=== PATIENT | female | born 1935 | race Caucasian/White ===

== ENCOUNTER 2022-04-06 14:42 | Outpatient (CLI) | payer MEDICARE, SELFPAY ==
--- NOTE | 2022-04-06 14:00 | CRLHL7_ITS ---
For Patients: As a result of the Century Cures Act, medical imaging exams and procedure reports are released immediately into your electronic medical record. You may view this report before your referring provider. If you have questions, please contact your health care provider. INDICATION: Bifrontal and temporal headaches on anticoagulation is common trauma TECHNIQUE: CT head without contrast. COMPARISON: 08/24/2020 FINDINGS: CSF spaces: Within normal limits for age. Brain parenchyma: The mueller-white differentiation is normal. No sign of mass, hemorrhage, or midline shift. Skull base and calvarium: The visualized paranasal sinuses and mastoid air cells demonstrate no acute or significant findings. The visualized orbits are grossly unremarkable. No skull fractures. IMPRESSION: Unremarkable noncontrast head CT. Dictated by Morales Fitch MD @ 04/06/2022 3:19:47 PM Please note that all CT scans at this facility use dose modulation, iterative reconstruction, and/or weight-based dosing when appropriate to reduce radiation dose to as low as reasonably achievable. Dictated by: Morales Fitch MD @ 04/06/2022 15:19:52 (Electronically Signed)
== END 2022-04-06 14:43 | disposition home or self-care (01) ==
LOC: CT 14:46
PROVIDERS: PCP Emergency Medicine; Visit Provider Emergency Medicine
DX: R51.9 Headache, unspecified (principal)
CPT/HCPCS: 70450; 84443

== ENCOUNTER 2022-06-21 14:30 | Outpatient (CLI) | payer MEDICARE, SELFPAY ==
--- OUTSIDE RECORDS SUMMARY | 2022-06-21 14:39 | XMS_ITS ---
:1935 Author Care Team Providers Name Role Phone SANTIAGO ZARATE Primary Care Provider [phone] Allergies Code Code System Name Reaction Severity Status Onset NKDA ? Medications Name Status Start Date Stop Date ? ? hydrochlorothiazide Active ? Not availabl e lisinopril Active ? Not available metoprolol succinate Active ? Not availab le simvastatin Active ? Not available warfarin Active ? Not available Problems None recorded. Procedures Date Name Performed by ? ? Cholecystectomy Information not avai lable ? Cataract Surgery Information not avai lable ? Cardiac Surgery Information not avai lable Results Lab Results Date Name Specimen Result Interpretation Description Value Range Status Address ? ? Bladder Scan (PROC) ? Volume (in mL) 0 mLs ? ? [facility]: [address], [place] ? Urinalysis, Dipstick ? pH-Status 6.0 ? ? [facility]: [address], [place] ? ? ? Blood-Status Trace ? ? [facility] [address], [place] Past Encounters None recorded. Social History Tobacco Smoking Status Never Smoker Vaccine List Vaccine Type pneumococcal conjugate PCV 13 08/03/2016 Plan of Care Reminders Provider Appointments None recorded. ? ? Lab None recorded. ? ? Referral None recorded. ? ? Procedures None recorded. ? ? Surgeries None recorded. ? ? Imaging None recorded. ? ? Vitals Height Weight BMI 5 ft 6.5 in 180 lbs 28.6 kg/m2
--- OUTSIDE RECORDS SUMMARY | 2022-06-21 14:39 | XMS_ITS | Clinical Summary ---
:1935 Author Organization [employer] & [facility] [place] [address] Care Team Providers Name Role Phone Lizzy Diaz MD Primary Care Provider [phone] Allergies No known active allergies Medications Medication Sig Dispensed Refills Start Date End Date Status MULTIVITAMIN ORAL 1 tab daily 0 Active VIACTIV 500 MG-100 UNIT-40 1 tab tid 0 08/05/2004 Active MCG ORAL CHEW ATENOLOL 50 MG TAB 1 tablet 3 month 3 10/15/2007 Active orally daily MECLIZINE 25 MG TAB take 1 tablet 30 1 03/13/2008 Active orally twice a day as needed HYDROCHLOROTHIAZIDE 25 MG TAKE 1 TABLET 30 1 12/24/2008 Active TAB BY MOUTH DAILY Active Problems Problem Noted Date FAMILY HX OF MALIG NEOPLSM OF BREAST-2 sisters 008 FAMILY HX OF ISCHEMIC HEART DISEASE-mother [place] in 50s, father in 70s 10/15/2007 MILD MITRAL REGURGITATION, mild LAE, EF 55% on TTE 08/15/2006 Palpitations 08/01/2006 Overview: labs normal TTE- normal EF, nl LV size, mild MR and TR, LAE [facility] Overview: PE:10/01 pap: 07/29, all normal in past- none fur ther mammo: 06/30 hx of breast cancer- Dr. Lane dexa: 07/30-osteopenia calcium: 2-3 dairy, mv, viactiv tid exercise: walks 3 miles daily colon: 06/2004-polyp (Dr. 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 Lane q3 mo [facility]. HYPERTENSION-TTE 07/30- EF 55-60%, nl LV size, trace/m ild MR, mild LAE Overview: 07/30- LVH on EKG- schedule TTE- no LVH Immunizations Name Administration Dates Next Due Influenza, IIV3 (Age >=3 years) 07/25/2007, 07/25/2006, 07/25 Pneumococcal Poly,23-Valent (Pneumovax) 03/11/2004 Td (Age >=7 Years) 03/11/2004 Family History Medical History Relation Name Comments Heart Disease Father in 90s of C AD/CHF Heart Disease Mother onset late 50s Cancer-breast Sister 4 age 72 Cancer-breast Sister 5 age 70 Cancer-colon No Family History Cancer-ovarian No Family History Cancer-prostate No Family History Relation Name Status Comments Brother 1 Alive Brother 2 Alive Brother 3 Alive Brother 4 Alive Father (Age 90) CAD, CHF Mother (Age 91) CAD, CHF Paternal Aunt Alive Sister 1 Alive Sister 2 Alive hx of breast ca Sister 3 Alive hx of breast ca Sister 4 Sister 5 Social History Tobacco Use Types Packs/Day Years Used Date Never Smoker Alcohol Use Standard Drinks/Week Comments Yes 0 (1 standard drink = 0.6 oz pure alcoho l) seldom Sex Assigned at Date Recorded Not on file Obstetrics History Last Filed Vital Signs Vital Sign Reading Time Taken Comments Blood Pressure 120/60 03/13/2008 1:08 PM CDT Pulse 64 10/15/2007 1:34 PM JAVA APPLICATION DEVELOPER Temperature 36.6 ??C (97.9 ??F) 03/08/2007 1:45 PM CDT Respiratory Rate - - Oxygen Saturation - - Inhaled Oxygen Concentration - - Weight 80.6 kg (177 lb 9.6 oz) 03/13/2008 1:08 PM CDT Height 170.2 cm (5' 7) 10/15/2007 1:34 PM JAVA APPLICATION DEVELOPER Body Mass Index 27.82 10/15/2007 1:34 PM JAVA APPLICATION DEVELOPER Plan of Treatment Health Maintenance Due Date Last Done Comments COVID-19 vaccine series (#1) 03/30/1936 Tdap 1946 Depression screening for age 12+ 1947 BMI (ht and wt on same day) for age 0109/30/1953 18+ Zoster (shingles) series for age 50+ 1985 (1 of 2) Pneumococcal series for age 65+ (2 - 03/11/2005 03/11/2004 PCV) Tetanus booster 03/11/2014 03/11/2004 Influenza for age 65+ 05/25/2022 07/25/2007, 07/25/2006, 08/05/2004 DEXA/DXA scan for age 65+ Completed 06/18/2008 Results Not on filefrom Last 3 Months Insurance Payer Benefit Plan / Subscriber ID Effective Dates Phone Addre ss Type Group MEDICARE PART B MEDICARE PART B [id number] 2000-Presen ATTN: CLAIMS - HB USE ONLY HB ONLY t [address] [facility] [place] [address] BLUE CROSS BLUE CROSS [id number] 2019-Presen [address] MED[place], [place] [id number] Advance Directives Latest Code Status on File Code Status Date Activated Date Inactivated Comments 08/07/2004 10:50 PM 08/07/2004 11:50 PM Care Teams Horticultural Manager Relationship Specialty Start Date End Date Lizzy Diaz MD PCP - General 07/10/10
--- NOTE | 2022-06-21 14:40 | CRLHL7_ITS ---
For Patients: As a result of the Century Cures Act, medical imaging exams and procedure reports are released immediately into your electronic medical record. You may view this report before your referring provider. If you have questions, please contact your health care provider. RIGHT SCREENING MAMMOGRAM WITH COMPUTER-AIDED DETECTION TECHNIQUE: CC and MLO views were obtained. These mammographic images have been obtained using full-field digital technique. These mammographic images were interpreted with the benefit of computer-aided detection. COMPARISON FILM: 05/24/21, 03/26/20, 11/25/18. FINDINGS: There are scattered areas of fibroglandular density IMPRESSION: There is no radiographic evidence for malignancy. ASSESSMENT: BI-RADS Category 2: Benign RECOMMENDATION: Routine screening mammogram in 1 year. A lay language report of this examination will be provided to the patient. Morales Spence M.D. Diagnostic Radiologist [email or web address] CLEMENT/Dictated by: Morales Spence MD @ 06/22/2022 12:41:00 PM (Electronically Signed)
== END 2022-06-21 14:31 | disposition home or self-care (01) ==
LOC: MAMMO 14:31
PROVIDERS: PCP Emergency Medicine; Visit Provider Emergency Medicine
DX: Z12.31 Encounter for screening mammogram for malignant neoplasm of breast (principal)
CPT/HCPCS: 77067

== ENCOUNTER 2022-07-05 10:34 | Outpatient (CLI) | payer MEDICARE, SELFPAY ==
--- OUTSIDE RECORDS SUMMARY | 2022-07-05 10:37 | XMS_ITS | Clinical Summary ---
:1935 Author Organization [employer] & [facility] [place] [address] Care Team Providers Name Role Phone Lizzy Diaz MD Primary Care Provider [phone] Allergies No known active allergies Medications Medication [...] 008 FAMILY HX OF ISCHEMIC HEART DISEASE-mother [place] in 50s, father in 70s 10/15/2007 MILD MITRAL REGURGITATION, mild LAE, EF 55% on TTE 08/15/2006 Palpitations 08/01/2006 Overview: labs normal TTE- normal EF, nl LV size, mild MR and TR, LAE [facility]2005 Overview: PE:10/01 pap: 07/29, all normal [...] year. Follows with Dr. Lane q3 mo [facility]. HYPERTENSION-TTE 07/30- EF 55-60%, nl LV [...] PM CDT Pulse 64 10/15/2007 1:34 PM PAINTER SET Temperature 36.6 ??C (97.9 ??F) 03/08/2007 1:45 PM CDT Respiratory Rate - - Oxygen Saturation - - Inhaled Oxygen Concentration - - Weight 80.6 kg (177 lb 9.6 oz) 03/13/2008 1:08 PM CDT Height 170.2 cm (5' 7) 10/15/2007 1:34 PM PAINTER SET Body Mass Index 27.82 10/15/2007 1:34 PM PAINTER SET Plan of Treatment Health Maintenance Due Date [...] Group MEDICARE PART B MEDICARE PART B [id number] 2000-Presen ATTN: CLAIMS - HB USE ONLY HB ONLY t [address] [place] [address] BLUE CROSS BLUE CROSS [id number] 2019-Presen [address] MEDICARE [place] [id number] Advance Directives Latest Code Status on File Code Status Date Activated Date Inactivated Comments 08/07/2004 10:50 PM 08/07/2004 11:50 PM Care Teams Comber Tender Relationship Specialty Start Date End Date Lizzy Diaz MD PCP - General 07/10/10
--- OUTSIDE RECORDS SUMMARY | 2022-07-05 10:37 | XMS_ITS ---
:1935 Author Care Team Providers Name Role Phone SANTIAGO ZARATE Primary Care Provider [phone] Allergies Code Code System Name Reaction Severity [...] Volume (in mL) 0 mLs ? ? [facility]: [address], [place] ? Urinalysis, Dipstick ? pH-Status 6.0 ? ? [facility]: [address], [place] ? ? ? Blood-Status Trace ? ? [facility] [address], [place] Past Encounters None recorded. Social History Tobacco [...]
[2022-07-05 12:48] LABS: NT Pro B Type NatriureticPept* 1420 PG/mL (0-450)
== END 2022-07-05 10:35 | disposition home or self-care (01) ==
PROVIDERS: PCP Emergency Medicine; Visit Provider Emergency Medicine
DX: R06.02 Shortness of breath (principal); I10 Essential (primary) hypertension; Z79.01 Long term (current) use of anticoagulants
CPT/HCPCS: 83880; 84484

== ENCOUNTER 2022-07-28 11:20 | Emergency (ER) | payer MEDICARE, SELFPAY ==
[2022-07-28 11:24] VITALS: BP 170/84; PULSE 78; RESP 20; TEMP 36.2; O2SAT 96; BMI 29.1
--- NOTE | 2022-07-28 11:35 | ED_ITS ---
HPI - General Adult General Time Seen by Provider: 11:36 Date Seen: 07/28/22 Chief complaint: Extremity Pain/Injury, Lower Stated complaint: R knee pain Time Seen by Provider: 07/28/22 11:26 Source: patient and family Mode of arrival: ambulatory Limitations: no limitations History of Present Illness HPI narrative: 86-year-old female who comes in today with knee pain. She has had knee pain since a fall in February. She reports that she has had x-ray and MRI of this with no pathology found. Today has had increased pain and unable to bend the knee. No new injury. She has been taking Tylenol ibuprofen as well as using a brace. She is currently anticoagulated for a heart valve, she also has a pacemaker. INR done yesterday by her report was in therapeutic range. She denies any fevers or chills. Pain in the knee is worse with movement and walking, she says it is swollen today as well. On further you to review with patient and daughter, it sounds like she has only had x-ray of this knee and has not had advanced imaging to date. She has not seen Orthopedics for this. Related Data Home Medications Medication Instructions Recorded Confirmed amoxicillin 500 mg tablet 2,000 mg PO ONCE 04/06/22 07/28/22 metoprolol succinate 50 mg 50 mg PO BID 04/06/22 07/28/22 tablet,extended release 24 hr multivitamin (Daily Multi-Vitamin 1 tab PO QDAY 04/06/22 07/28/22 tablet) metoprolol tartrate 50 mg tablet 50 mg PO BID 07/28/22 07/28/22 simvastatin 10 mg tablet 10 mg PO DAILY 07/28/22 07/28/22 Previous Rx's Medication Instructions Recorded lisinopril 20 1 tab PO QDAY #90 tabs 07/05/22 mg-hydrochlorothiazide 12.5 mg tablet warfarin 3 mg tablet See Rx Instructions .Route 07/26/22 .COMPLEX #90 tabs Allergies Allergy/AdvReac Type Severity Reaction Status Date / Time No Known Allergies Allergy Verified 07/05/22 10:04 [facility] Medical History (Updated 07/28/22 @ 13:25 by Julio Crum MD) Anxiety Calf pain COVID-19 Headache Leg edema 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 SOB (shortness of breath) Surgical History (Updated 07/05/22 @ 12:55 by Briana Luevano MD) History of aortic valve replacement History of aortic valve replacement History of colonoscopy with polypectomy History of mastectomy Status post cardiac pacemaker procedure (08/08/10) Status post cataract extraction and insertion of intraocular lens (02/28/13) Family History (Updated 04/03/22 @ 13:34 by Tino Dodge) Sister Breast cancer Mother Coronary artery disease High blood pressure Father Coronary artery disease Brother Diabetes Social History (Updated 04/03/22 @ 13:34 by Tino Dodge) Narrative: does not use illicit drugs nonsmoker occasional alcohol consumption Smoking Status: Never smoker Do you use any of these nicotine containing products: None Second hand tobacco smoke exposure: No How often do you have a drink containing alcohol: never AUDIT-C Alcohol total score: 0 Non-prescribed substance use: denies use Exam Narrative: Exam Narrative: General: Well-developed and well-nourished, no acute distress Head: Atraumatic and normocephalic Eyes: Pupils are equal reactive, extraocular motions intact, conjunctiva clear ENT: External nose and ears are normal, posterior pharynx without erythema or exudate Neck: No midline cervical tenderness, full spontaneous range of motion the neck, trachea midline, no adenopathy Heart: Regular rate and rhythm , valve murmur Lungs: Clear to auscultation bilaterally without wheezes or crackles Abdomen: Soft, nontender, nondistended with active bowel sounds Musculoskeletal: Right knee effusion, pain with passive move Neurologic: Awake, alert, and oriented x3, no gross focal neurologic deficits, cranial nerves intact as tested Psych: Mood and affect are appropriate Skin: No rashes Const: Vital Signs, click to edit/add: Vital Signs - 24 hr 07/28/22 11:24 Temperature 97.1 F L Pulse Rate [Right Pulse Oximeter] 78 Respiratory Rate 20 Blood Pressure [Ri ght Upper Arm] 170/84 H Pulse Oximetry 96 Oxygen Delivery Me thod Room Air Documenting provider has reviewed patient's vital signs: yes Course Course Hospital Course: Patient seen examined, prior records are reviewed. Patient complans of right knee pain which is been ongoing since a fall several months ago. She denies any new trauma but has had progressively worsening pain. Came in by ambulance [facility]. On exam, moderate to large joint effusion, pain with movement, no redness or warmth. Patient initially had stated that she had had a CT and MRI of this, however on review of chart she only had x-rays at the time of her initial injury. She says she has not been seen elsewhere for this, and it sounds like on further questioning she has not had any other further imaging. Patient has a pacemaker, CT of the right leg is ordered to evaluate for bony abnormality. Reevaluation(s) Reevaluation #1: CT scan demonstrated a large joint effusion but no bony abnormalities. Discussed arthrocentesis with the patient, risks and benefits discussed and patient is agreeable to proceed. Joint was entered from a superior lateral approach after anesthetizing the skin with lidocaine 1% with epinephrine. 40 mL of serosanguineous fluid was obtained. Sent for cultures and crystal analysis. Kenalog 40 mg injected. Patient tolerated the procedure well. Needle was withdrawn with no bleeding and a Band-Aid was placed. Pain improved after arthrocentesis. Time: 13:24 Vital Signs Vital signs: Initial Vital Signs Temperature 97.1 F L 07/28/22 11:24 Temperature Source Temporal Artery Scan 07/28/22 11:24 Pulse Rate 78 07/28/22 11:24 Respiratory Rate 20 07/28/22 11:24 Blood Pressure 170/84 H 07/28/22 11:24 Blood Pressure Mean 112 07/28/22 11:24 Blood Pressure Position Sitting 07/28/22 11:24 Pulse Oximetry 96 07/28/22 11:24 Oxygen Delivery Method 07/28/22 11:24 Vital Signs Temperature 97.1 F L 07/28/22 11:24 Pulse Rate 78 07/28/22 11:24 Respiratory Rate 20 07/28/22 11:24 Blood Pressure 170/84 H 07/28/22 11:24 Pulse Oximetry 96 07/28/22 11:24 Oxygen Delivery Method 07/28/22 11:24 Temperature 97.1 F L 07/28/22 11:24 Pulse Rate 78 07/28/22 11:24 Respiratory Rate 20 07/28/22 11:24 Blood Pressure 170/84 H 07/28/22 11:24 Pulse Oximetry 96 07/28/22 11:24 Oxygen Delivery Method 07/28/22 11:24 Discharge Plan Discharge Clinical Impression: Joint effusion of knee Patient Disposition: Home, Self-Care Condition: Stable Instructions: Swollen Knee Joint (ED), Joint Aspiration (DC) Additional Instructions: Ice the knee 15-20 minutes at a time every 2-3 hours while awake for the next 2- 3 days. Activity as tolerated. Continue using a wrap or brace on the knee for comfort and to prevent reaccumulation of fluid. Follow-up with your regular doctor next week, consider following up with the [facility] Activity Level: No Restrictions Discharge Diet: Regular Prescriptions: No Action lisinopril-hydrochlorothiazide 20-12.5 mg tablet 1 tab PO QDAY Qty: 90 1RF Rx Instructions: stop lisinopril 20 amoxicillin 500 mg tablet 2,000 mg PO ONCE metoprolol succinate 50 mg tablet extended release 24 hr 50 mg PO BID multivitamin [Daily Multi-Vitamin] Tablet 1 tab PO QDAY simvastatin 10 mg tablet 10 mg PO DAILY Label Comments: TAKE 1 TABLET BY MOUTH AT BEDTIME metoprolol tartrate 50 mg tablet 50 mg PO BID Label Comments: TAKE 1 TABLET BY MOUTH TWICE A DAY warfarin 3 mg tablet See Rx Instructions .ROUTE .COMPLEX Qty: 90 0RF Protocol: Dose Management Condition: Sunday Dose/Route: 3 % Instruction: 1 x 3 % tablet Condition: Sunday Dose/Route: 3 % Instruction: 1 x 3 % tablet Condition: Sunday Dose/Route: 3 % Instruction: 1 x 3 % tablet Condition: Sunday Dose/Route: 3 % Instruction: 1 x 3 % tablet Condition: Dose/Route: 3 % Instruction: 1 x 3 % tablet Condition: Sunday Dose/Route: 3 % Instruction: 1 x 3 % tablet Condition: Sunday Dose/Route: 3 % Instruction: 1 x 3 % tablet Protocol Text: Adjustment Start Date: Sunday07/26/22 INR Value: 2.7 INR Date: 07/25/22 Recheck Date: 08/23/22 Dose Instruction: TAKE 1 TABLET BY MOUTH EVERY DAY Rx Instructions: TAKE 1 TABLET BY MOUTH EVERY DAY Follow Up/Referrals: Briana Luevano MD [Primary Care Provider] - Stand Alone Forms: [facility] Info Instructions Procedures Joint Aspiration/Injection Joint Asp./Inject. 1: Written consent by: patient Time Out Performed: No Side of body: right Joint Aspirated: knee Site: origin (Superior lateral approach) Preparation: chlorhexidine and betadine Local Anesthetic: lidocaine 1% and with epi Amount of anesthesia used (mL): 44 Needle Size Used: Other (16G) Fluid Obtained: bloody (Serous blood tinged) Total fluid obtained (mL): 40 Medication Injected, if any: other (Kenalog 40 mg with lidocaine 1% 5 mL) Complications: none Patient Tolerated Procedure: well
--- NOTE | 2022-07-28 11:43 | CRLHL7_ITS ---
For Patients: As a result of the Cures Act, medical imaging exams and procedure reports are released immediately into your electronic medical record. You may view this report before your referring provider. If you have questions, please contact your health care provider. INDICATION: Right knee pain. Trauma. Pacemaker. COMPARISON: None. TECHNIQUE: CT right knee without contrast. FINDINGS: Severe tricompartmental joint space narrowing and osteophyte formation most pronounced in the lateral compartment. Chondrocalcinosis. Large joint effusion. Muscle volume is within normal limits for age. No lytic or blastic lesion. IMPRESSION: 1. Large joint effusion. 2. No acute fracture. 3. 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 Chondrocalcinosis. Please note that all CT scans at this facility use dose modulation, iterative reconstruction, and/or weight-based dosing when appropriate to reduce radiation dose to as low as reasonably achievable. Dictated by Morales Kwon MD @ 07/28/2022 12:36:01 PM (Electronically Signed)
--- OUTSIDE RECORDS SUMMARY | 2022-07-28 12:03 | XMS_ITS | Clinical Summary ---
:1935 Author Organization [employer] & [facility] [place] [address] Care Team Providers Name Role Phone Lizzy Diaz MD Primary Care Provider [phone] Allergies No known active allergies Medications Medication [...] 008 FAMILY HX OF ISCHEMIC HEART DISEASE-mother [place] in 50s, father in 70s 10/15/2007 MILD MITRAL REGURGITATION, mild LAE, EF 55% on TTE 08/15/2006 Palpitations 08/01/2006 Overview: labs normal TTE- normal EF, nl LV size, mild MR and TR, LAE [facility] Overview: PE:10/01 pap: 07/29, all [...] year. Follows with Dr. Lane q3 mo [facility]. HYPERTENSION-TTE 07/30- EF 55-60%, nl LV size, [...] PM CDT Pulse 64 10/15/2007 1:34 PM DISABILITY ADVOCATE Temperature 36.6 ??C (97.9 ??F) 03/08/2007 1:45 PM CDT Respiratory Rate - - Oxygen Saturation - - Inhaled Oxygen Concentration - - Weight 80.6 kg (177 lb 9.6 oz) 03/13/2008 1:08 PM CDT Height 170.2 cm (5' 7) 10/15/2007 1:34 PM DISABILITY ADVOCATE Body Mass Index 27.82 10/15/2007 1:34 PM DISABILITY ADVOCATE Plan of Treatment Health Maintenance Due Date [...] Group MEDICARE PART B MEDICARE PART B [id number] 2000-Presen ATTN: CLAIMS - HB USE ONLY HB ONLY t [address] [facility] [address] BLUE CROSS BLUE CROSS [id number] 2019-Presen [address] MEDIC[place], [place] [id number] Advance Directives Latest Code Status on File Code Status Date Activated Date Inactivated Comments 08/07/2004 10:50 PM 08/07/2004 11:50 PM Care Teams Property Handler Relationship Specialty Start Date End Date Lizzy Diaz MD PCP - General 07/10/10
--- OUTSIDE RECORDS SUMMARY | 2022-07-28 12:03 | XMS_ITS ---
:1935 Author Care Team Providers Name Role Phone SANTIAGO ZARATE Primary Care Provider [phone] Allergies Code Code System Name Reaction Severity [...] Volume (in mL) 0 mLs ? ? [facility]: [address], [place] ? Urinalysis, Dipstick ? pH-Status 6.0 ? ? [facility]: [address], [place] ? ? ? Blood-Status Trace ? ? [facility]: [address], [place] Past Encounters None recorded. Social History Tobacco [...]
[2022-07-28 15:19] LABS: BF Total Volume* 40; Mononuclear WBC Body Fluid* 6 %; Polynuclear WBC Body Fluid* 95 %; RBC, Body Fluid* 33000
[2022-07-28 15:20] LABS: BF Clarity* Slightly Cloudy; BF Color Blood Tinged
== END 2022-07-28 15:11 | disposition home or self-care (01) ==
PROVIDERS: Emergency Provider Family Medicine; PCP Emergency Medicine
DX: M25.461 Effusion, right knee (principal)
CPT/HCPCS: 20605; 73700; 87205; 89051; 89060; 99284

== ENCOUNTER 2023-03-08 11:38 | Outpatient (CLI) | payer MEDICARE, SELFPAY | END 2023-03-08 11:39 | disposition home or self-care (01) | LOC: NFLDREF 03-11 09:35 | PROVIDERS: PCP Emergency Medicine; Referring Provider Emergency Medicine; Visit Provider Emergency Medicine | DX: E78.5 Hyperlipidemia, unspecified (principal); I10 Essential (primary) hypertension; Z79.01 Long term (current) use of anticoagulants | CPT/HCPCS: 80053; 80061 ==

== ENCOUNTER 2023-07-11 13:07 | Outpatient (CLI) | payer MEDICARE, SELFPAY ==
--- NOTE | 2023-07-11 13:30 | CRLHL7_ITS ---
For Patients: As a result of the Century Cures Act, medical imaging exams and procedure reports are released immediately into your electronic medical record. You may view this report before your referring provider. If you have questions, please contact your health care provider. DXA BONE MINERAL DENSITY STUDY Current height (in): 66.5. Weight (lb): 175.0. Menopause age: 55. Ethnicity: White. Reason for exam: Screening. 1. Have you had a previous hip or vertebral fracture? No. 2. Have you had any fractures during your adult life which did not result from significant trauma (e.g., auto accident)? No. 3. Did either of your parents have a hip fracture? No. 4. Do you smoke? No. 5. Have you ever taken Glucocorticoids? No. 6. Do you have rheumatoid arthritis? Yes. 7. Do you have secondary osteoporosis? No. 8. Do you drink 3 or more alcoholic drinks per day? No. 9. Are you being treated for osteoporosis? No. 10. Have you ever taken any of the following medications: Actonel, Evista, Fosamax, Miacalcin, Reclast, Boniva, Forteo, HRT (i.e. estrogen/hormone therapy), Protelos, Prolia, Vitamin D, Calcium, other ??? please specify. ANSWER: No. 11. Do you have any of the following medical conditions: Anorexia or bulimia, asthma or emphysema, end stage renal disease, hyperparathyroidism, any seizure disorders, cancer, inflammatory bowel diseases, hysterectomy, other ??? please specify. ANSWER: Yes, cancer. 12. What was your maximum height (inches)? 66.5. 13. Do you perform weight bearing exercise regularly? No. 14. Do you regularly consume dairy products? Yes. 15. Do you drink caffeinated beverages? No. 16. At what age did your period start? 12. 17. Are you premenopausal? No. 18. How many full term pregnancies have you had? 3. 19. Have you ever missed your period for more than 6 months in a row (not including or menopause)? No. TECHNIQUE: Bone mineral density study was performed using the [employer]. FINDINGS: The results of the study expressed as bone mineral density (BMD) are as follows: Lumbar spine L1 to L4: BMD: 0.874 g/cm2. T-score: -1.6. Z-score: 1.3. Neck Left: BMD: 0.582 g/cm2. T-score: -2.4. Z-score: 0.1. Right: BMD: 0.550 g/cm2. T-score: -2.7. Z-score: -0.2. Total Left: BMD: 0.687 g/cm2. T-score: -2.1. Z-score: 0.2. Right: BMD: 0.619 g/cm2. T-score: -2.6. Z-score: -0.3. IMPRESSION: Osteoporosis. Morales Spence M.D. Diagnostic Radiologist [email or web address] Transcribed: 12:05 pm DW/Dictated by: Morales Spence MD @ 07/16/2023 8:48:00 AM (Electronically Signed)
--- NOTE | 2023-07-11 14:00 | CRLHL7_ITS ---
For Patients: As a result of the Century Cures Act, medical imaging exams and procedure reports are released immediately into your electronic medical record. You may view this report before your referring provider. If you have questions, please contact your health care provider. RIGHT BREAST SCREENING MAMMOGRAM WITH COMPUTER-AIDED DETECTION TECHNIQUE: CC and MLO views were obtained. These mammographic images have been obtained using full-field digital technique. These mammographic images were interpreted with the benefit of computer-aided detection. COMPARISON FILM: 06/21/22, 05/24/21, 03/26/20. FINDINGS: There are scattered areas of fibroglandular density. IMPRESSION: There is no radiographic evidence for malignancy. ASSESSMENT: BI-RADS Category 2: Benign RECOMMENDATION: Routine screening mammogram in 1 year. A lay language report of this examination will be provided to the patient. FRANCINE LAURENT M.D. Diagnostic/Nuclear Medicine Radiologist [email or web address] Transcribed: 1:[address]/Dictated by: Francine Laurent MD @ 07/13/2023 10:23:00 AM (Electronically Signed)
== END 2023-07-11 13:08 | disposition home or self-care (01) ==
PROVIDERS: PCP Emergency Medicine; Visit Provider Emergency Medicine
DX: Z12.31 Encounter for screening mammogram for malignant neoplasm of breast (principal); Z13.820 Encounter for screening for osteoporosis; M81.0 Age-related osteoporosis without current pathological fracture
CPT/HCPCS: 77067; 77080

== ENCOUNTER 2023-12-07 11:45 | Outpatient (CLI) | payer MEDICARE, SELFPAY | END 2023-12-07 11:46 | disposition home or self-care (01) | PROVIDERS: PCP Emergency Medicine; Visit Provider Family Medicine | DX: R35.0 Frequency of micturition (principal) | CPT/HCPCS: 87086 ==

== ENCOUNTER 2024-06-20 08:55 | Outpatient (CLI) | payer MEDICARE, SELFPAY ==
--- OUTSIDE RECORDS SUMMARY | 2024-06-24 21:49 | XMS_ITS ---
Author Organization [facility] Address [address] [place] [address] Care Team Providers Care Take Off Man Name Role Phone Unavailable Unavailable Unavailable Surgery Details Not on file Complications Check Surgery Details section. Procedure Estimated Blood Loss Check Surgery Details section. Procedure Findings Check Surgery Details section. Procedure Specimens Taken Check Surgery Details section.
--- OUTSIDE RECORDS SUMMARY | 2024-06-24 21:49 | XMS_ITS | Clinical Summary ---
Author Organization [facility] Address [address] [place] [address] Care Team Providers Care Tool Smith Name Role Phone Elsewhere, Pcp Primary Care Provider Unavailabl e Source Comments Patient records contain information from all sites at [facility]. For routine questions regarding patient records, call [phone] during business hours, M-F 8:00 AM - 5:00 PM Central Time. Record requests for emergency care only can be directed to [phone] at any time.[facility] Allergies No known active allergies Medications Medication Sig Dispensed Refills Start Date End Date Status metoprolol tartrate (LOPRESSOR) 50 mg tablet Take 1 tablet by mouth 2 (two) times a day. 07/25/2015 Active MULTIVITAMIN ORAL Take 1 tablet by mouth daily. 06/23/2010 Active simvastatin (ZOCOR) 10 mg tablet Take 1 tablet by mouth at bedtime. 07/20/2015 Active lisinopril-hydroCHLORO thiazide (PRINZIDE,ZESTORETIC) 20-12.5 mg per tablet 1 tablet daily. 10/01/2022 Active warfarin (COUMADIN) 3 mg tablet Take 3 mg by mouth daily. Weds and Sat. 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 Encounter For Checking And Testing Of Cardiac Pacemaker Pulse Generator Battery Discharge Disposition: Home or Self Care from Last 3 Months Immunizations Name Administration Dates Next Due Influenza Split 07/25/2012,07/25/2011,06/24/2010 Td, (Adult) Unspecified 02/22/2010 influenza trivalent high dose (HD)(PF) 5 Family History Medical History Relation Name Comments Hypertension Daughter Arthritis Mother Pacemaker care Mother Pacemaker care Sister Relation Name Status Comments Daughter Mother Sister Social History Tobacco Use Types Packs/Day Years Used Date Smoking Tobacco: Never Smokeless Tobacco: Never Humiliation, Afraid, Rape, and Kick questionnair e Answer Date Recorded Within the last year, have y ou been afraid of your partner or ex-partner? No 01/19/2023 Within the last year, have y ou been humiliated or emotionally abused in other ways by your partner or ex-partner? No Within the last year, have y ou been kicked, hit, slapped, or otherwise physically hurt by your partner or ex-partner? No 01/19/2023 Within the last year, have y ou been raped or forced to have any kind of sexual activity by your partner or ex-partner? No 01/19/2023 Social Connection and Isolat ion Panel [NHANES] Answer Date Recorded In a typical week, how many times do you talk on the phone with family, friends, or neighbors? More than three times a week 01/19/2023 How often do you get togethe r with friends or relatives? Three times a week 01/19/2023 How often do you attend [facility] or mosque services? More than 4 times per year 01/19/2023 Do you belong to any clubs o r organizations such as anabaptism groups, unions, fraternal or athletic groups, or school groups? No 01/19/2023 How often do you attend meet ings of the clubs or organizations you belong to? Patient declined 01/19/2023 Are you , , di vorced, , never , or living with a partner? 01/19/2023 AUDIT-C Answer Date Recorded Q1: How often do you have a drink containing alc ohol? 2-4 times a month 01/19/2023 Q2: How many drinks containi ng alcohol do you have on a typical day when you are drinking? 1 or 2 01/19/2023 Q3: How often do you have si x or more drinks on one occasion? Never 01/19/2023 Overall Financial Resource Strain (CARDIA) Answe r Date Recorded How hard is it for you to pa y for the very basics like food, housing, medical care, and heating? Not hard at all 01/19/2023 [facility] [place] [facility] - Occupational Stress Questionnaire Answer Date Recorded Do you feel stress - tense, restless, nervous, or anxious, or unable to sleep at night because your mind is troubled all the time - these days? Not at all 01/19/2023 Exercise Vital Sign Answer Date Recorde d On average, how many days pe r week do you engage in moderate to strenuous exercise (like a brisk walk)? 0 days 01/19/2023 On average, how many minutes do you engage in exercise at this level? 0 min 01/19/2023 Hunger Vital Sign Answer Date Recorded Within the past 12 months, y ou worried that your food would run out before you got the money to buy more. Never true 01/20/20 23 Within the past 12 months, t he food you bought just didn't last and you didn't have money to get more. Never true 01/19/2023 PRAPARE - Transportation Answer Date Re corded In the past 12 months, has l ack of transportation kept you from medical appointments or from getting medications? No 12/24 In the past 12 months, has l ack of transportation kept you from meetings, work, or from getting things needed for daily living? No 01/19/2023 Housing Stability Vital Sign Answer Maldonado e Recorded In the last 12 months, was t here a time when you were not able to pay the mortgage or rent on time? No 01/19/2023 In the last 12 months, how many places have you lived? 1 01/19/2023 In the last 12 months, was t here a time when you did not have a steady place to sleep or slept in a [place] [facility] [place] (including now)? No 01/19/2023 Nutrition Answer Date Recorded Nutrition: EVOO Fat Source Yes 01/19 On average, how many serving s of fruits and vegetables do you eat per day (serving size is equal to 1 cup or approximately the size of a tennis ball)? 4-5 01/19/2023 Dental Answer Date Recorded Dental: Regular Dentist Yes 01/20/20 Employment Answer Date Recorded Employment status Retired 01/19/2023 Education Answer Date Recorded What is the highest level of school you have completed or the highest degree you have received? 12th grade 01/19/2023 Sex and Gender Information Value Date Recorded Sex Assigned at Not on file Gender Identity Female 01/19/2023 1:44 PM CDT Sexual Orientation Straight 01/19/2023 1: 44 PM CDT Last Filed Vital Signs Vital Sign Reading Time Taken Comments Blood Pressure 170/76 01/19/2023 1:58 PM CDT Pulse 80 01/19/2023 1:58 PM CDT Temperature 36.6 ??C (97.9 ??F) 10/26/2022 7:18 AM CS T Respiratory Rate 19 12/22/2022 2:35 PM CDT Oxygen Saturation 98% 12/22/2022 2:35 PM CDT Inhaled Oxygen Concentration - - Weight 78.4 kg (172 lb 15.2 oz) 12/28/2022 2:00 PM CDT Height 164 cm (5' 4.57) 12/28/2022 2:00 PM CDT Body Mass Index 29.17 12/28/2022 2:00 PM CDT Plan of Treatment Health Maintenance Due Date Last Done Comments Zoster Vaccines (1 of 2) 1985 RSV vaccine - (32-3 6 weeks) or 60+ years (1 - 1-dose 75+ series) 2010 Depression Screening (Annual PHQ-2) 09/24/2023 Fall Risk Screen (Annual) 09/24/2023 Creatinine Level (Kidney Fun ction Test) 12/22/2023 12/21/2022, 10/25/2022, 07/25/2015, Additional history exists Potassium Level 12/22/2023 12/21/2022, 02/0 09/2022, 07/25/2015, Additional history exists Sodium Level 12/22/2023 12/21/2022, 02/0 09/2022, 07/25/2015, Additional history exists COVID-19 Vaccine (5 - 2023-2 5 season) 2024 07/12/2023, 07/07/2021, 11/20/2020, Additional history exists Influenza Vaccine (#1) 2024 , 08/03/2022, 06/23/2021, Additional history exists DTaP,Tdap,and Td Vaccines (2 - Td or Tdap) 08/03/2026 08/03/2016, 02/22/2010 Pneumococcal vaccine (65+ years) Completed 09/29/2020, 08/03/2016, 03/11/2004 Medical Devices Implanted Type Area Carton Forming Machine Helper Device Identifier Shelf Expiration Date Model / Serial / Lot Lead 4076-52 Capsurefix Novus - [id number] Implanted:Qty: 1 on 08/04/2010 by Damian Pugh M.D., Ph.D. Cardiac Lead Heart Medtronic / [id number] / Description:Device Manufactu rer - Medtronic [employer] Body Location - ?. Right Ventricle. Device Status Text - [id number]. Lead 4076-45 Capsurefix Novus - Coleman [id number] Implanted:Qty: 1 on 08/04/2010 Cardiac Lead Heart Medtronic / [id number] / Description:Device Manufactu rer - Medtronic [employer] Inc. Body Location - ?. Right Atrial. Device Status Text - [id number] [id number]. Valve Trifecta 23mm Tis - Coleman [id number] Implanted:Qty: 1 on 07/20/[address] [facility]) Description:Device Manufactu rer - [employer] Body Location - Other. Aortic. Device Status Text - [id number]. Envelope Md Olmos - [id number] Implanted:Qty: 1 on 10/26/2022 by Damian Pugh M.D., Ph.D. at [facility] Mesh or Patch Medtronic 07/19/2023 [id number] / / [id number] Conversions - Default Historical Implant Device Implanted:06/25 (Quantity not on file) Ocular Lens Other/Legacy - See Implant Description Description:Body Location - mariela eyes. Device Status Text - OculrLens. Ppm Worth[address] Dr Armenta [id number] - [id number] Implanted:Qty: 1 on 10/26/2022 by Damian Pugh M.D., Ph.D. at [facility] Pacemaker Medtronic 03/21/2024 [id number] / [id number] / Explanted Type Area Carton Forming Machine Helper Device Identifier Shelf Expiration Date Model / Serial / Lot Pacer [id number] Sensia Dr Geovany Coleman [id number] Implanted:Qty: 1 on 08/04/2010 Explanted:Qty: 1 on 10/26/2022 by Damian Pugh M.D., Ph.D. at [facility] Pacemaker Right: Other/Legacy - See Implant Description Medtronic / [id number] / Description:Device Manufactu rer - Medtronic [employer] Body Location - Right. Device Status Text - [id number]. Procedures Procedure Name Priority Date/Time Associated Diagnosis Comments PACER REMOTE FOLLOW UP Routine 05/06/2024 10:46 AM CDT Encounter For Checking And Testing Of Cardiac Pacemaker Pulse Generator Battery SODIUM, S/P Routine 12/21/2022 8:23 AM CDT Regurgitation Tricuspid POTASSIUM, S/P Routine 12/21/2022 8:23 AM CDT Regurgitation Tricuspid CREATININE WITH EGFR, S/P Routine 12/21/2022 8:23 AM CDT Regurgitation Tricuspid from Last 3 Months or Most Recently Relevant to Health Maintenance Results * PACER REMOTE FOLLOW UP (05/06/2024 10:46 AM CDT) Date Time Interrogation Session [id number] [facility] Implantable Pulse Generator Carton Forming Machine Helper Medtronic [facility] Implantable Pulse Generator Model [id number] Ana M XT DR MRI [facility] Implantable Pulse Generator Serial Number [id number] [facility] Type Interrogation Session Remote [facility] Name [facility] Implantable Pulse Generator Type Pacemaker [facility] Implantable Pulse Generator Implant Date 20221026 [facility] Implantable Lead Carton Forming Machine Helper Medtronic [facility] Implantable Lead Model 4076 CapsureFix Novus MRI SureScan [facility] Implantable Lead Serial Number [id number] [facility] Implantable Lead Implant Date 20100804 [facility] Implantable Lead Polarity Type Bipolar Lead [facility] Implantable Lead Location Detail 1 Endocardial [facility] Implantable Lead Special Function Lead length: 52 cm [facility] Implantable Lead Location Right Ventricle [facility] Implantable Lead Carton Forming Machine Helper Medtronic [facility] Implantable Lead Model 4076 CapsureFix Novus MRI SureScan [facility] Implantable Lead Serial Number [id number] [facility] Implantable Lead Implant Date 20100804 [facility] Implantable Lead Polarity Type Bipolar Lead [facility] Implantable Lead Location Detail 1 Endocardial [facility] Implantable Lead Special Function Lead length: 45 cm [facility] Implantable Lead Location Right Atrium [facility] Jairo Setting Mode (NBG Code) DDDR [facility] Jairo Setting Lower Rate Limit 60 {beats}/ min [facility] J[place] Setting Maximum Tracking Rate 120 {beats}/ min [facility] J[place] Setting Maximum Sensor Rate 120 {beats}/ min [facility] Jairo Setting NAYELY Delay Low 140 ms [facility] J[place] Setting PAV Delay Low 170 ms [facility] J[place] Setting PAV Delay High 140 ms [facility] Jairo Setting NAYELY Delay High 110 ms [facility] Jairo Setting AT Mode Switch Rate 150 {beats}/ min [facility] Jairo Setting AT Mode Switch Mode DDIR [facility] Lead Channel Setting Sensing Polarity Bipolar [facility] Lead Channel Setting Sensing Anode Location Right [facility] Lead Channel Setting Sensing Anode Terminal Ring [facility] Lead Channel Setting Sensing Cathode Location Right [facility] Lead Channel Setting Sensing Cathode Terminal Tip [facility] Lead Channel Setting Sensing Sensitivity 0.3 mV [facility] Lead Channel Setting Sensing Adaptation Mode Fixed [facility] Lead Channel Setting Sensing Polarity Bipolar [facility] Lead Channel Setting Sensing Anode Location Right Ventricle [facility] Lead Channel Setting Sensing Anode Terminal Ring [facility] Lead Channel Setting Sensing Cathode Location Right Ventricle [facility] Lead Channel Setting Sensing Cathode Terminal Tip [facility] Lead Channel Setting Sensing Sensitivity 0.9 mV [facility] Lead Channel Setting Sensing Adaptation Mode Fixed [facility] Lead Channel Setting Pacing Polarity Bipolar [facility] Lead Channel Setting Pacing Anode Location Right [facility] Lead Channel Setting Pacing Anode Terminal Ring [facility] Lead Channel Setting Sensing Cathode Location Right [facility] Lead Channel Setting Sensing Cathode Terminal Tip [facility] Lead Channel Setting Pacing Pulse Width 0.4 ms [facility] Lead Channel Setting Pacing Amplitude 1.5 V [facility] Lead Channel Setting Pacing Capture Mode Adaptive [facility] Lead Channel Setting Pacing Polarity Bipolar [facility] Lead Channel Setting Pacing Anode Location Right Ventricle [facility] Lead Channel Setting Pacing Anode Terminal Ring [facility] Lead Channel Setting Sensing Cathode Location Right Ventricle [facility] Lead Channel Setting Sensing Cathode Terminal Tip [facility] Lead Channel Setting Pacing Pulse Width 0.4 ms [facility] Lead Channel Setting Pacing Amplitude 2 V [facility] Lead Channel Setting Pacing Capture Mode Adaptive [facility] Zone Setting Type Category VF [facility] Zone Setting Type Category VT [facility] Zone Setting Type Category VT [facility] Zone Setting Type Category VT [facility] Zone Setting Detection Interval 350 ms [facility] Zone Setting Type Category ATRIAL_FIBRILLATI ON [facility] Zone Setting Type Category AT/AF [facility] Zone Setting Detection Interval 400 ms [facility] Lead Channel Impedance Value 437 ohm [facility] Lead Channel Impedance Value 361 ohm [facility] Lead Channel Sensing Intrinsic Amplitude 3.75 mV [facility] Lead Channel Impedance Value 437 ohm [facility] Lead Channel Impedance Value 285 ohm [facility] Lead Channel Sensing Intrinsic Amplitude 16.125 mV [facility] Lead Channel Pacing Threshold Amplitude 0.625 V [facility] Lead Channel Pacing Threshold Pulse Width 0.4 ms [facility] Battery Date Time of Measurements [facility] 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 2.625 [facility] Battery Remaining Longevity 136 mo [facility] Battery Voltage 3.03 V [facility] Jairo Statistic Date Time Start [facility] Jairo Statistic Date Time End [facility] Jairo Statistic RA Percent Paced 0.06 % [facility] Jairo Statistic RV Percent Paced 99.94 % [facility] Atrial Tachy Statistic Date Time Start [facility] Atrial Tachy Statistic Date Time End [facility] Atrial Tachy Statistic AT/AF [place] Percent 100 % [facility] Episode Statistic Recent Count 67 [facility] Episode Statistic Type Category AT/AF [facility] Episode Statistic Recent Count 0 [facility] Episode Statistic Type Category Patient Activated [facility] Episode Statistic Recent Count 0 [facility] Episode Statistic Type Category SVT [facility] Episode [facility]istic Recent Count 0 [facility] Episode Statistic Type Category VT [facility] Episode Statistic Recent Count 0 [facility] Episode Statistic Type Category VT [facility] Episode Statistic Recent Date Time Start [facility] Episode Statistic Recent Date Time End [facility] Episode Statistic Recent Date Time Start [facility] Episode Statistic Recent Date Time End [facility] Episode Statistic Recent Date Time Start [facility] Episode Statistic Recent Date Time End [facility] Episode Statistic Recent Date Time Start [facility] Episode Statistic Recent Date Time End [id number] [facility] Episode Statistic Recent Date Time Start F[facility] Episode Statistic Recent Date Time End [id number] [facility] Episode Statistic Total Count 355 [facility] Episode Statistic Type Category AT/AF [facility] Episode Statistic Total Count 0 [facility] Episode Statistic Type Category Patient Activated F[facility] Episode Statistic Total Count 0 [facility] Episode Statistic Type Category SVT [facility] Episode Statistic Total Count 0 [facility] Episode Statistic Type Category VT [facility] Episode Statistic Total Count 0 [facility] Episode Statistic Type Category VT [facility] Episode Statistic Total Date Time Start [facility] Episode Statistic Total Date Time End [id number] [facility] Episode Statistic Total Date Time Start [facility] Episode Statistic Total Date Time End [id number] [facility] Episode Statistic Total Date Time Start [facility] Episode Statistic Total Date Time End [id number] [facility] Episode Statistic Total Date Time Start [facility] Episode Statistic Total Date Time End [id number] [facility] Episode Statistic Total Date Time Start [facility] Episode Statistic Total Date Time End [id number] [facility] Episode Identifier 355 [facility] Episode Type Category Monitor F[facility] Episode Date Time [facility] Episode Identifier 354 [facility] Episode Type Category Monitor [facility] Episode Date Time [id number] [facility] Episode Duration 2,114 s [facility] Episode Identifier 353 [facility] Episode Type Category Monitor [facility] Episode Date Time [id number] [facility] Episode Duration 88,441 s [facility] Episode Identifier 352 [facility] Episode Type Category Monitor [facility] Episode Date Time [id number] [facility] Episode Duration 9,644 s [facility] Episode Identifier 351 [facility] Episode Type Category Monitor [facility] Episode Date Time [id number] [facility] Episode Duration 429,641 s [facility] Episode Identifier 350 [facility] Episode Type Category Monitor [facility] Episode Date Time [id number] [facility] Episode Duration 1,166 s [facility] Episode Identifier 349 [facility] Episode Type Category Monitor [facility] Episode Date Time [id number] [facility] Episode Duration 151,860 s [facility] Episode Identifier 348 [facility] Episode Type Category Monitor [facility] Episode Date Time [id number] [facility] Episode Duration 6,946 s [facility] Episode Identifier 347 [facility] Episode Type Category Monitor [facility] Episode Date Time [id number] [facility] Episode Duration 81,644 s [facility] Episode Identifier 346 [facility] Episode Type Category Monitor [facility] Episode Date Time [id number] [facility] Episode Duration 93,997 s [facility] Episode Identifier 345 [facility] Episode Type Category Monitor [facility] Episode Date Time [id number] [facility] Episode Duration 93,828 s [facility] Episode Identifier 344 [facility] Episode Type Category Monitor [facility] Episode Date Time [id number] [facility] Episode Duration 400 s [facility] Episode Identifier 343 [facility] Episode Type Category Monitor [facility] Episode Date Time [id number] [facility] Episode Duration 1,118,301 s [facility] Episode Identifier 342 [facility] Episode Type Category Monitor [facility] Episode Date Time [id number] [facility] Episode Duration 3,324 s [facility] Episode Identifier 341 [facility] Episode Type Category Monitor [facility] Episode Date Time [id number] [facility] Episode Duration 83,516 s [facility] Episode Identifier 340 [facility] Episode Type Category Monitor [facility] Episode Date Time [id number] [facility] Episode Duration 14,678 s [facility] Episode Identifier 339 [facility] Episode Type Category Monitor [facility] Episode Date Time [id number] [facility] Episode Duration 496,921 s [facility] Episode Identifier 338 [facility] Episode Type Category [facility] Episode Date Time [id number] [facility] Episode Duration 83,144 s [facility] Episode Identifier 337 [facility] Episode Type Category Monitor [facility] Episode Date Time [id number] [facility] Episode Duration 104,621 s [facility] Episode Identifier 336 [facility] Episode Type Category Monitor [facility] Episode Date Time [id number] [facility] Episode Duration 1,948,583 s [facility] Episode Identifier 335 [facility] Episode Type Category Monitor [facility] Episode Date Time [id number] [facility] Episode Duration 116,384 s [facility] Episode Identifier 334 [facility] Episode Type Category Monitor [facility] Episode Date Time [id number] [facility] Episode Duration 129 s [facility] Episode Identifier 333 [facility] Episode Type Category Monitor [facility] Episode Date Time [id number] [facility] Episode Duration 148,973 s [facility] Episode Identifier 332 [facility] Episode Type Category Monitor [facility] Episode Date Time [id number] [facility] Episode Duration 107,226 s [facility] Episode Identifier 331 [facility] Episode Type Category Monitor [facility] Episode Date Time [id number] [facility] Episode Duration 63,198 s [facility] Episode Identifier 330 [facility] Episode Type Category Monitor [facility] Episode Date Time [id number] [facility] Episode Duration 812 s [facility] Episode Identifier 329 [facility] Episode Type Category Monitor [facility] Episode Date Time [id number] [facility] Episode Duration 6,367 s [facility] Episode Identifier 328 [facility] Episode Type Category Monitor [facility] Episode Date Time [id number] [facility] Episode Duration 19,447 s [facility] Episode Identifier 327 [facility] Episode Type Category Monitor [facility] Episode Date Time [id number] [facility] Episode Duration 74,124 s [facility] Episode Identifier 326 [facility] Episode Type Category Monitor [facility] Episode Date Time [id number] [facility] Episode Duration 173,893 s [facility] Episode Identifier 325 [facility] Episode Type Category Monitor [facility] Episode Date Time [id number] [facility] Episode Duration 1,543 s [facility] Episode Identifier 324 [facility] Episode Type Category Monitor [facility] Episode Date Time [id number] [facility] Episode Duration 78,618 s [facility] Episode Identifier 323 [facility] Episode Type Category Monitor [facility] Episode Date Time [id number] [facility] Episode Duration 257,526 s [facility] Episode Identifier 322 [facility] Episode Type Category Monitor [facility] Episode Date Time [id number] [facility] Episode Duration 104,234 s [facility] Episode Identifier 321 [facility] Episode Type Category Monitor [facility] Episode Date Time [id number] [facility] Episode Duration 340,618 s [facility] Episode Identifier 320 [facility] Episode Type Category Monitor [facility] Episode Date Time [id number] [facility] Episode Duration 153,607 s [facility] Episode Identifier 319 [facility] Episode Type Category Monitor [facility] Episode Date Time [id number] [facility] Episode Duration 101,594 s [facility] Episode Identifier 318 [facility] Episode Type Category Monitor [facility] Episode Date Time [id number] [facility] Episode Duration 80,032 s [facility] Episode Identifier 317 [facility] Episode Type Category Monitor [facility] Episode Date Time [id number] [facility] Episode Duration 38 s [facility] Episode Identifier 316 [facility] Episode Type Category Monitor [facility] Episode Date Time [id number] [facility] Episode Duration 93 s [facility] Episode Identifier 315 [facility] Episode Type Category Monitor [facility] Episode Date Time [id number] [facility] Episode Duration 203 s [facility] Episode Identifier 314 [facility] Episode Type Category Monitor [facility] Episode Date Time [id number] [facility] Episode Duration 381 s [facility] Episode Identifier 313 [facility] Episode Type Category Monitor [facility] Episode Date Time [id number] [facility] Episode Duration 28 s [facility] Episode Identifier 312 [facility] Episode Type Category Monitor [facility] Episode Date Time [id number] [facility] Episode Duration 1,270 s [facility] Episode Identifier 311 [facility] Episode Type Category Monitor [facility] Episode Date Time [id number] [facility] Episode Duration 103 s [facility] Episode Identifier 310 [facility] Episode Type Category Monitor [facility] Episode Date Time [id number] [facility] Episode Duration 31 s [facility] Episode Identifier 309 [facility] Episode Type Category Monitor [facility] Episode Date Time [id number] [facility] Episode Duration 48 s [facility] Episode Identifier 308 [facility] Episode Type Category Monitor [facility] Episode Date Time [id number] [facility] Episode Duration 50 s [facility] Episode Identifier 307 [facility] Episode Type Category Monitor [facility] Episode Date Time [id number] [facility] Episode Duration 13,153 s [facility] Episode Identifier 306 [facility] Episode Type Category Monitor [facility] Episode Date Time [id number] [facility] Episode Duration 85,393 s [facility] Episode Identifier 305 [facility] Episode Type Category Monitor [facility] Episode Date Time [id number] [facility] Episode Duration 73,689 s [facility] Anatomical Region Laterality Modality Other 04/28/2024 11:0 1 PM CDT Narrative 05/07/2024 8:20 AM CDT PURPOSE OF VISIT: ??Routine pacemaker remote transmission PRESENTING EGM: ??Atrial flutter with V pacing at 60 bpm ATRIAL ARRHYTHMIAS: ??Since last follow up on 01/28/24, device reports 67 AT/AF episodes. ??Review of EGMs show atrial flutter. ??Patient has a history of AF and takes warfarin ?Atrial fibrillation burden: ??100% ?Ventricular rates during atrial fibrillation: ??Histograms show heart rates ranging from 60-120 bpm VENTRICULAR ARRHYTHMIAS: ??Since last follow up on 01/28/24, there are no new episodes BATTERY LONGEVITY: Expected battery longevity trends reviewed and are stable and consistent with device settings and use. SUMMARY: All device function appears normal. FOLLOW UP: Next routine follow-up will be in 3 months via [facility] remote transmission DEVICE RN: Pauly Barraza RN Provider statement: This patient underwent device interrogation. I agree that the device interrogation was medically indicated to provide appropriate care and continue routine device interrogations as indicated. Trenton Rogers M.D., M.P.H. CV IMPLANTAB LE CARDIAC DEVICE * Sodium (12/21/2022 8:23 AM CDT) Sodium, S 139 135 - 145 mmol/L 12/21/2022 9:38 AM CDT DTL Blood (Blood, Venous) 12/21/2022 8:23 AM CDT 12/21/2022 9:05 AM CDT Esther Berry P.A.-C., M.S. LAB BLOOD A DD-ON Performing Organization Address City/[facility]/ZIP Co de Phone Number [facility] [address] [facility] [address] [place] [address] * Potassium (12/21/2022 8:23 AM CDT) Potassium, S 4.1 3.6 - 5.2 mmol/L 12/21/2022 9:38 AM CDT DTL Blood (Blood, Venous) 12/21/2022 8:23 AM CDT 12/21/2022 9:05 AM CDT Esther Berry P.A.-C., M.S. LAB BLOOD A DD-ON Performing Organization Address City/[facility]/ZIP Co de Phone Number [facility] [address] [place] [address], [facility] [address] [place] [address] * Creatinine with Estimated GFR (12/21/2022 8:23 AM CDT) Creatinine 0.79 0.59 - 1.04 mg/dL 12/21/2022 9:38 AM CDT DTL Estimated GFR (eGFR) 72 >=60 mL/min/BSA 12/21/2022 9:38 AM CDT DTL Comment: Estimated GFR calculated using the 2020 CKD_EPI creatinine equation. Blood (Blood, Venous) 12/21/2022 8:23 AM CDT 12/21/2022 9:05 AM CDT Esther Berry P.A.-C., M.S. LAB BLOOD A DD-ON [facility] [address] [place] [address], [facility] [address] [place] [address] from Last 3 Months or Most Recently Relevant to Health Maintenance Care Teams Tool Smith Relationship Specialty Start Date End Date Elsewhere, Pcp PCP - General Internal Medicine 10/26/22
--- OUTSIDE RECORDS SUMMARY | 2024-06-24 21:49 | XMS_ITS | Referral Summary ---
Author Organization [facility] Address [address] [place] [address] Care Team Providers Care Health And Safety Consultant Name Role Phone Elsewhere, Pcp Primary Care Provider Unavailabl e Source Comments Patient records contain information from all sites at [facility]. For routine questions regarding patient records, call [phone] during business hours, M-F 8:00 AM - 5:00 PM Central Time. Record requests for emergency care only can be directed to [phone] at any time.[facility] Encounters Date Type Department Care Team Description 04/29/2024 4:00 AM CDT - 04/29/2024 11:59 PM CDT Hospital Encounter Department of Cardiovascular Diseases in [place], [place] [address] [place] [address] Trenton Rogers M.D., M.P.H. Encounter For Checking And Testing Of Cardiac Pacemaker Pulse Generator Battery Discharge Disposition: Home or Self Care from Last 3 Months Allergies No known active allergies Medications Medication [...] (10/16/2022): Added automatically from request for surgery [id number] Hyperlipidemia 06/24/2010 Hypertension 06/22/2010 Atrial Fibrillation Unspecified 06/22/2010 Immunizations Name Administration Dates Next Due Influenza Split 07/25/2012,07/25/2011,06/24/2010 Td, (Adult) Unspecified 02/22/2010 influenza trivalent high dose (HD)(PF) 5 Social History Tobacco Use Types Packs/Day [...] week 01/19/2023 How often do you attend chur or jainism services? More than 4 times per year 01/19/2023 Do you belong to any clubs o r organizations such as protestant groups, unions, fraternal or athletic groups, or [...] and heating? Not hard at all 01/19/2023 [facility] - Occupational Stress Questionnaire Answer Date Recorded [...] place to sleep or slept in a mcfp (including now)? No 01/19/2023 Nutrition Answer Date [...] 12/28/2022 2:00 PM CDT Plan of Treatment Not on file Medical Devices Implanted Type Area Net Development Manager Device Identifier Shelf Expiration Date Model / Serial / Lot Lead 4076-52 Capsurefix Novus - Coleman [id number] Implanted:Qty: 1 on 08/04/2010 by Damian Pugh M.D., Ph.D. Cardiac Lead Heart Medtronic / [id number] / Description:Device Manufactu rer - Medtronic [employer] Body Location - ?. Right Ventricle. Device Status Text - CARD [id number]. Lead 4076-45 Capsurefix Novus - Coleman [id number] Implanted:Qty: 1 on 08/04/2010 Cardiac Lead Heart Medtronic / [id number] / Description:Device Manufactu rer - Medtronic [employer]. Body Location - ?. Right Atrial. Device Status Text - CARD [id number]. Valve Trifecta 23mm Tis - Coleman [id number] Implanted:Qty: 1 on 07/20/[address] [facility] ([employer] Division of [employer]) Description:Device Manufactu rer - [employer] Body Location - Other. Aortic. Device Status Text - [id number]. Envelope Tyrcaridad - [id number] Implanted:Qty: 1 on 10/26/2022 by Damian Pugh M.D., Ph.D. at [facility] Mesh or Patch Medtronic 07/19/2023 [id number] / / [id number] Conversions - Default Historical Implant Device Implanted:06/25 (Quantity not on file) Ocular Lens Other/Legacy - See Implant Description Description:Body Location - mariela eyes. Device Status Text - OculrLens. Ppm Hartwick Seminary Dr Armenta [id number] - [id number] Implanted:Qty: 1 on 10/26/2022 by Damian Pugh M.D., Ph.D. at [facility] Pacemaker Medtronic 03/21/2024 [id number] / [id number] / Explanted Type Area Net Development Manager Device Identifier Shelf Expiration Date Model / Serial / Lot Pacer [id number] Sensia Dr Geovany Coleman [id number] Implanted:Qty: 1 on 08/04/2010 Explanted:Qty: 1 on 10/26/2022 by Damian Pugh M.D., Ph.D. at [facility] Pacemaker Right: Other/Legacy - See Implant Description Medtronic / [id number] / Description:Device Manufactu rer - Medtronic [employer] Body Location - Right. Device Status Text - [id number]. Procedures Procedure Name Priority Date/Time Associated Diagnosis [...] 10:46 AM CDT) Date Time Interrogation Session [id number] [facility] Implantable Pulse Generator Net Development Manager Medtronic [facility] Implantable Pulse Generator Model [id number] [place] M XT MRI [facility] Implantable Pulse Generator Serial Number [id number] [facility] Type Interrogation Session Remote [facility] Clinic Name [facility] Implantable Pulse Generator Type Pacemaker [facility] Implantable Pulse Generator Implant Date [id number] [facility] Implantable Lead Net Development Manager Medtronic [facility] Implantable Lead Model 4076 CapsureFix Novus MRI SureScan [facility] Implantable Lead Serial Number [id number] [facility] Implantable Lead Implant Date [id number] [facility] Implantable Lead Polarity Type Bipolar Lead [facility] Implantable Lead Location Detail 1 Endocardial [facility] Implantable Lead Special Function Lead length: 52 cm [facility] Implantable Lead Location Right Ventricle [facility] Implantable Lead Net Development Manager Medtronic [facility] Implantable Lead Model 4076 CapsureFix Novus MRI SureScan [facility] Implantable Lead Serial Number [id number] [facility] Implantable Lead Implant Date 20100804 [facility] Implantable Lead Polarity Type Bipolar Lead [facility] Implantable Lead Location Detail 1 Endocardial [facility] Implantable Lead Special Function Lead length: 45 cm [facility] Implantable Lead Location Right Atrium [facility] [place] Setting Mode (NBG Code) DDDR [facility] [place] Setting Lower Rate Limit 60 {beats}/ min [facility] [place] Setting Maximum Tracking Rate 120 {beats}/ min [facility] [place] Setting Maximum Sensor Rate 120 {beats}/ min [facility] [place] Setting NAYELY Delay Low 140 ms [facility] [place] Setting PAV Delay Low 170 ms [facility] [place] Setting PAV Delay High 140 ms [facility] [place] Setting NAYELY Delay High 110 ms [facility] [place] Setting AT Mode Switch Rate 150 {beats}/ min [facility] [place] Setting AT Mode Switch Mode DDIR [facility] Lead Channel Setting Sensing Polarity Bipolar [facility] Lead Channel Setting Sensing Anode Location Right Atrium [facility] Lead Channel Setting Sensing Anode Terminal Ring [facility] Lead Channel Setting Sensing Cathode Location Right Atrium [facility] Lead Channel Setting Sensing Cathode Terminal Tip [facility] Lead Channel Setting Sensing Sensitivity 0.3 mV [facility] Lead Channel Setting Sensing Adaptation Mode Fixed [facility] Lead Channel Setting Sensing Polarity Bipolar [facility] Lead Channel Setting Sensing Anode Location Right Ventricle [facility] Lead Channel Setting Sensing Anode Terminal Ring [facility] Lead Channel Setting Sensing Cathode Location Right Ventricle [facility] Lead Channel Setting Sensing Cathode Terminal Tip [facility] Lead Channel Setting Sensing Sensitivity 0.9 mV [facility] Lead Channel Setting Sensing Adaptation Mode Fixed [facility] Lead Channel Setting Pacing Polarity Bipolar [facility] Lead Channel Setting Pacing Anode Location Right Atrium [facility] Lead Channel Setting Pacing Anode Terminal Ring [facility] Lead Channel Setting Sensing Cathode Location Right Atrium [facility] Lead Channel Setting Sensing Cathode Terminal Tip [facility] Lead Channel Setting Pacing Pulse Width 0.4 ms [facility] Lead Channel Setting Pacing Amplitude 1.5 V [facility] Lead Channel Setting Pacing Capture Mode Adaptive [facility] Lead Channel Setting Pacing Polarity Bipolar [facility] Lead Channel Setting Pacing Anode Location Right Ventricle [facility] Lead Channel Setting Pacing Anode Terminal Ring [facility] Lead Channel Setting Sensing Cathode Location Right Ventricle [facility] Lead Channel Setting Sensing Cathode Terminal Tip [facility] Lead Channel Setting Pacing Pulse Width 0.4 ms [facility] Lead Channel Setting Pacing Amplitude 2 V [facility] Lead Channel Setting Pacing Capture Mode Adaptive [facility] Zone Setting Type Category VF [facility] Zone Setting Type Category VT [facility] Zone Setting Type Category VT [facility] Zone Setting Type Category VT [facility] Zone Setting Detection Interval 350 ms [facility] Zone Setting Type Category ATRIAL_FIBRILLATI ON [facility] Zone Setting Type Category AT/AF [facility] Zone Setting Detection Interval 400 ms [facility] Lead Channel Impedance Value 437 ohm [facility] Lead Channel Impedance Value 361 ohm [facility] Lead Channel Sensing Intrinsic Amplitude 3.75 mV [facility] Lead Channel Impedance Value 437 ohm [facility] Lead Channel Impedance Value 285 ohm [facility] Lead Channel Sensing Intrinsic Amplitude 16.125 mV [facility] Lead Channel Pacing Threshold Amplitude 0.625 V [facility] Lead Channel Pacing Threshold Pulse Width 0.4 ms [facility] Battery Date Time of Measurements [facility] Battery ELECTRICAL FOREMAN Trigger 2.625 [facility] Battery Remaining Longevity 136 mo [facility] Battery Voltage 3.03 V [facility] [place] Statistic Date Time Start [facility] [place] Statistic Date Time End [facility] [place] Statistic RA Percent Paced 0.06 % [facility] [place] Statistic RV Percent Paced 99.94 % [facility] Atrial Tachy Statistic Date Time Start [facility] Atrial Tachy Statistic Date Time End [facility] Atrial Tachy Statistic AT/AF [place] Percent 100 % [facility] Episode [...] SYSTEM Episode Statistic Recent Date Time End [id number] [facility] Episode Statistic Recent Date Time Start [facility] Episode Statistic Recent Date Time End [id number] [facility] Episode Statistic Recent Date Time Start [facility] Episode Statistic Recent Date Time End [id number] [facility] Episode Statistic Recent Date Time Start F[facility] Episode Statistic Recent Date Time End [id number] [facility] Episode Statistic Recent Date Time Start [id number] [facility] Episode Statistic Recent Date Time End [id number] [facility] Episode Statistic Total Count [...] SYSTEM Episode Statistic Total Date Time End [id number] [facility] Episode Statistic Total Date Time Start [facility] Episode Statistic Total Date Time End [id number] [facility] Episode Statistic Total Date Time Start [facility] Episode Statistic Total Date Time End [id number] [facility] Episode Statistic Total Date Time Start [facility] Episode Statistic Total Date Time End [id number] [facility] Episode Statistic Total Date Time Start [facility] Episode Statistic Total Date Time End [id number] [facility] Episode Identifier 355 [facility] Episode Type Category Monitor [facility] Episode Date Time [id number] [facility] Episode Identifier 354 [facility] Episode Type Category Monitor [facility] Episode Date Time [id number] [facility] Episode Duration 2,114 s [facility] Episode Identifier 353 [facility] Episode Type Category Monitor [facility] Episode Date Time [id number] [facility] Episode Duration 88,441 s [facility] Episode Identifier 352 [facility] Episode Type Category Monitor [facility] Episode Date Time [id number] [facility] Episode Duration 9,644 s [facility] Episode Identifier 351 [facility] Episode Type Category Monitor [facility] Episode Date Time [id number] [facility] Episode Duration 429,641 s [facility] Episode Identifier 350 [facility] Episode Type Category Monitor [facility] Episode Date Time [id number] [facility] Episode Duration 1,166 s [facility] Episode Identifier 349 [facility] Episode Type Category Monitor [facility] Episode Date Time [id number] [facility] Episode Duration 151,860 s [facility] Episode Identifier 348 [facility] Episode Type Category Monitor [facility] Episode Date Time [id number] [facility] Episode Duration 6,946 s [facility] Episode Identifier 347 [facility] Episode Type Category Monitor [facility] Episode Date Time [id number] [facility] Episode Duration 81,644 s [facility] Episode Identifier 346 [facility] Episode Type Category Monitor [facility] Episode Date Time [id number] [facility] Episode Duration 93,997 s [facility] Episode Identifier 345 [facility] Episode Type Category Monitor [facility] Episode Date Time [id number] [facility] Episode Duration 93,828 s [facility] Episode Identifier 344 [facility] Episode Type Category Monitor [facility] Episode Date Time [id number] [facility] Episode Duration 400 s [facility] Episode Identifier 343 [facility] Episode Type Category Monitor [facility] Episode Date Time [id number] [facility] Episode Duration 1,118,301 s [facility] Episode Identifier 342 [facility] Episode Type Category Monitor [facility] Episode Date Time [id number] [facility] Episode Duration 3,324 s [facility] Episode Identifier 341 [facility] Episode Type Category Monitor [facility] Episode Date Time [id number] [facility] Episode Duration 83,516 s [facility] Episode Identifier 340 [facility] Episode Type Category Monitor [facility] Episode Date Time [id number] [facility] Episode Duration 14,678 s [facility] Episode Identifier 339 [facility] Episode Type Category Monitor [facility] Episode Date Time [id number] [facility] Episode Duration 496,921 s [facility] Episode Identifier 338 [facility] Episode Type Category Monitor [facility] Episode Date Time [id number] [facility] Episode Duration 83,144 s [facility] Episode Identifier 337 [facility] Episode Type Category Monitor [facility] Episode Date Time [id number] [facility] Episode Duration 104,621 s [facility] Episode Identifier 336 [facility] Episode Type Category Monitor [facility] Episode Date Time [id number] [facility] Episode Duration 1,948,583 s [facility] Episode Identifier 335 [facility] Episode Type Category Monitor [facility] Episode Date Time [id number] [facility] Episode Duration 116,384 s [facility] Episode Identifier 334 [facility] Episode Type Category Monitor [facility] Episode Date Time [id number] [facility] Episode Duration 129 s [facility] Episode Identifier 333 [facility] Episode Type Category Monitor [facility] Episode Date Time [id number] [facility] Episode Duration 148,973 s [facility] Episode Identifier 332 [facility] Episode Type Category Monitor [facility] Episode Date Time [id number] [facility] Episode Duration 107,226 s [facility] Episode Identifier 331 [facility] Episode Type Category Monitor [facility] Episode Date Time [id number] [facility] Episode Duration 63,198 s [facility] Episode Identifier 330 [facility] Episode Type Category Monitor [facility] Episode Date Time [id number] [facility] Episode Duration 812 s [facility] Episode Identifier 329 [facility] Episode Type Category Monitor [facility] Episode Date Time [id number] [facility] Episode Duration 6,367 s [facility] Episode Identifier 328 [facility] Episode Type Category Monitor [facility] Episode Date Time [id number] [facility] Episode Duration 19,447 s [facility] Episode Identifier 327 [facility] Episode Type Category Monitor [facility] Episode Date Time [id number] [facility] Episode Duration 74,124 s [facility] Episode Identifier 326 [facility] Episode Type Category Monitor [facility] Episode Date Time [id number] [facility] Episode Duration 173,893 s [facility] Episode Identifier 325 [facility] Episode Type Category Monitor [facility] Episode Date Time [id number] [facility] Episode Duration 1,543 s [facility] Episode Identifier 324 [facility] Episode Type Category Monitor [facility] Episode Date Time [id number] [facility] Episode Duration 78,618 s [facility] Episode Identifier 323 [facility] Episode Type Category Monitor [facility] Episode Date Time [id number] [facility] Episode Duration 257,526 s [facility] Episode Identifier 322 [facility] Episode Type Category Monitor [facility] Episode Date Time [id number] [facility] Episode Duration 104,234 s [facility] Episode Identifier 321 [facility] Episode Type Category Monitor [facility] Episode Date Time [id number] [facility] Episode Duration 340,618 s [facility] Episode Identifier 320 [facility] Episode Type Category Monitor [facility] Episode Date Time [id number] [facility] Episode Duration 153,607 s [facility] Episode Identifier 319 [facility] Episode Type Category Monitor [facility] Episode Date Time [id number] [facility] Episode Duration 101,594 s [facility] Episode Identifier 318 [facility] Episode Type Category Monitor [facility] Episode Date Time [id number] [facility] Episode Duration 80,032 s [facility] Episode Identifier 317 [facility] Episode Type Category Monitor [facility] Episode Date Time [id number] [facility] Episode Duration 38 s [facility] Episode Identifier 316 [facility] Episode Type Category Monitor [facility] Episode Date Time [id number] [facility] Episode Duration 93 s [facility] Episode Identifier 315 [facility] Episode Type Category Monitor [facility] Episode Date Time [id number] [facility] Episode Duration 203 s [facility] Episode Identifier 314 [facility] Episode Type Category Monitor F[facility] Episode Date Time [id number] [facility] Episode Duration 381 s [facility] Episode Identifier 313 [facility] Episode Type Category Monitor [facility] Episode Date Time [id number] [facility] Episode Duration 28 s [facility] Episode Identifier 312 [facility] Episode Type Category Monitor [facility] Episode Date Time [id number] [facility] Episode Duration 1,270 s [facility] Episode Identifier 311 [facility] Episode Type Category Monitor [facility] Episode Date Time [id number] [facility] Episode Duration 103 s [facility] Episode Identifier 310 [facility] Episode Type Category Monitor [facility] Episode Date Time [id number] [facility] Episode Duration 31 s [facility] Episode Identifier 309 [facility] Episode Type Category Monitor [facility] Episode Date Time [id number] [facility] Episode Duration 48 s [facility] Episode Identifier 308 [facility] Episode Type Category Monitor [facility] Episode Date Time [id number] [facility] Episode Duration 50 s [facility] Episode Identifier 307 [facility] Episode Type Category Monitor [facility] Episode Date Time [id number] [facility] Episode Duration 13,153 s [facility] Episode Identifier 306 [facility] Episode Type Category Monitor [facility] Episode Date Time [id number] [facility] Episode Duration 85,393 s [facility] Episode Identifier 305 [facility] Episode Type Category Monitor [facility] Episode Date Time [id number] [facility] Episode Duration 73,689 s [...] follow-up will be in 3 months via [employer] remote transmission DEVICE RN: Pauly Barraza RN [...] P.A.-C., M.S. LAB BLOOD A DD-ON [facility] [address] [place] [address], [place] [facility] [address] [place] [address] * Potassium (12/21/2022 8:23 AM CDT) Potassium, S 4.1 3.6 - 5.2 mmol/L 12/21/2022 9:38 AM CDT DTL Blood (Blood, Venous) 12/21/2022 8:23 AM CDT 12/21/2022 9:05 AM CDT Esther Berry P.A.-C., M.S. LAB BLOOD A DD-ON Performing Organization Address [facility] Co de Phone Number [facility] [address] [place] [address], [facility] [address] [place] [address] * Creatinine with Estimated GFR (12/21/2022 8:23 AM CDT) Creatinine 0.79 0.59 - 1.04 mg/dL 12/21/2022 9:38 AM CDT DTL Estimated GFR (eGFR) 72 >=60 mL/min/BSA 12/21/2022 9:38 AM CDT DTL Comment: Estimated GFR calculated using the 2020 CKD_EPI creatinine equation. Blood (Blood, Venous) 12/21/2022 8:23 AM CDT 12/21/2022 9:05 AM CDT Esther Berry P.A.-C., M.S. LAB BLOOD A DD-ON Performing Organization Address [facility] Co de Phone Number [facility] [address] [place] [address], [facility] [address] [place] [address] from Last 3 Months or Most Recently Relevant to Health Maintenance Care Teams Health And Safety Consultant Relationship Specialty Start Date End Date Elsewhere, Pcp PCP - General Internal Medicine 10/26/22
--- OUTSIDE RECORDS SUMMARY | 2024-06-24 21:49 | XMS_ITS | Continuity of Care Document ---
Author Organization [facility] Address [address] [address] [place] [address] Phone Care Team Providers Care Water Operator Name Role Phone Unavailable Unavailable Unavailable Allergies, Adverse Reactions, Alerts Substance Reaction Status Criticality No Known Allergies Active No Inform ation Medications Medication Instructions Dosage Effective Dates (start - stop) Status Comments metoprolol tartrate 50 mg tablet take 1 Tablet by oral route 2 times every day 50 MG - Active simvastatin 10 mg tablet take 1 tablet by oral route every day in the evening 10 MG - Active multivitamin tablet take 1 tablet by ora l route every day with food - Active Procedures Procedure Date Offic/outpt E&m New Mod Sever 6 Routine Serum Collection Bld Ct; Hg & Platelet Ct Autom 16 Hepatic Function Panel Results Test Name Date and Time Measure Units Reference Range Abnormal Flag Status Comments Panel Description: Hepatic Function Panel (7) F inal Albumin, Serum 6 10:40:37 3.5 g/dl 3.4-5.0 Final Bilirubin, Total 6 10:40:37 0.3 mg/dl 0.1-1.2 Final Bilirubin, Direct 6 10:40:37 0.1 mg/dl 0.0-0.2 Final Alkaline Phosphatase, Serum 6 10:40:37 78 U/L 46-116 Final Protein, Total, Serum 6 10:40:37 7.1 g/dL 6.4-8.2 Final ALT (SGPT) 6 10:40:37 30 U/L 0-78 Final AST (SGOT) 6 10:40:37 16 U/L 0-37 Final A/G Ratio 6 10:40:37 0.97 1.00-2.00 L Final Panel Description: Complete Blood Count without Differential Final WBC 6 10:40:37 6.0 K/uL 4.5-11.0 Final RBC 6 10:40:37 4.93 M/uL 4.00-5.20 Final Hemoglobin 6 10:40:37 14.2 g/dl 12.0-16.0 Final Hematocrit 6 10:40:37 45.1 % 33.0-51.0 Final MCV 6 10:40:37 92 fl 80-100 Final MCH 6 10:40:37 28.9 pg 26.0-34.0 Final MCHC 6 10:40:37 31.6 g/dl 32.0-36.0 L Final RDW 6 10:40:37 13.0 % 11.5-15.5 Final Platelets 6 10:40:37 222 K/uL 140-440 Final Advance Directives Directive Yes / No Effective Date File Name No Information Encounters Encounter Description Practice Location Reason(s) For Visit Diagnoses Date Provider Providers Copied on Encounter Offic/outpt E&m [facility], [address] [address], [place], [place], [id number], [place] tel:[phone] [facility] GI Symptoms or Concerns (chief complaint) Abnormal liver function testsEssential (primary) hypertension No Information Referring Provider: Lizzy Zhang MD S, [id number] [place], [address]. tel:[phone] Family History Family Member Type Diagnosis Age At Onset Sister Problem (finding) Maternal history of abbe betes mellitus Brother Problem (finding) Father Problem (finding) Sister Problem (finding) Mother Problem (finding) Alive and well Father Problem (finding) gallbladder disease Sister Problem (finding) malignant neop lasm of breast in first degree relative Daughter Problem (finding) Alive and well Immunizations Vaccine Date Status Comments Influenza virus vaccine, injectable, quadrivalent, split virus, preservative free, 3 years or older Fluarix Quad administered Note: Invalid docume nted admin date was . ; Source: Other Provider Pneumo (2 yrs or older)(PPV) administered Source: Other Provider Payers Payer name Insurance type Covered constitution party ID Authoriza ticristhian(s) [employer] [place] [employer] [place] [id number] Social History Type Description Quantity Date Captured Comments Alcohol Use Details Caffeine Use Details Unknown Tobacco Use Status Never smoked tobacco 2015 Smoking Status Never smoker Non-Smoking Tobacco Use Details : No Details Available : No Details Available Sex Female Vital Signs Date / Time: Height Weight BMI Pulse Rate Blood Pressure Temperature Respiratory Rate Body Surface Area Head Circumference Head Circ. Percentile [place]./[place]. Percentile BMI percentile Pulse Ox Inhaled Ox 9:58 AM 66.00 in 78.925 kg (174.00 lbs) 28.0 8 kg/m eter (2) 80 /min 170/90 mm[Hg] Chief Complaint And Reason For Visit From encounter dated '11/09/2015 10:15'. GI Symptoms or Concerns (chief complaint). Description: Clint Box is an 80 yo female with a history of aortic valve replacement, pacemaker, breast cancer and kidney stones who presents to the clinic with concerns of elevated liver tests. The patient was at her PCP the first week of October 2015 and at that time she was told she had abnormal liver tests and was referred to [facility]. Her AST was 76, ALT 24, alk phos 76, total bilirubin 0.9 and albumin 3.5. The patient denies any abnormal liver test previous to this encounter. It was also noted that the patient had an elevated BNP (962), which she denies being informed of it being previously elevated. The patient is currently being treated for hyperlipidemia and hypertension. The patient denies any unplanned weight loss, swelling in her legs,or decrease in activity level. She states that she feels fine and has no complaints". The patient denies smoking, but does drink 1 glass of wine about 3 times a week. The patient denies a diet that is high in breads, pasta, or sweets. Reason For Referral Reason For Referral No Information History Of Present Illness Encounter Date Complaint History Of Prese nt Illness GI Symptoms or Concerns Clint diaz is an 80 yo female with a history of aortic valve replacement, pacemaker, breast cancer and kidney stones who presents to the clinic with concerns of elevated liver tests. The patient was at her PCP the first week of October 2015 and at that time she was told she had abnormal liver tests and was referred to [facility]. Her AST was 76, ALT 24, alk phos 76, total bilirubin 0.9 and albumin 3.5. The patient denies any abnormal liver test previous to this encounter. It was also noted that the patient had an elevated BNP (962), which she denies being informed of it being previously elevated. The patient is currently being treated for hyperlipidemia and hypertension. The patient denies any unplanned weight loss, swelling in her legs, or decrease in activity level. She states that she "feels fine and has no complaints. The patient denies smoking, but does drink 1 glass of wine about 3 times a week. The patient denies a diet that is high in breads, pasta, or sweets. Functional Status Date Functional Assessmen t No Information Instructions Date Instruction Additional Infor mation No Information Assessments Type Assessment Date assessment Abnormal liver function tests assessment Essential (primary) hypertension impression Clint Box is a 80 yo female with an extensive cardiac history with isolated elevated AST and BNP. The patient has no complaints of fluid retention or SOB or changes in her health. She does have risk factors for fatty liver with elevated glucose, obesity, hypertension and hyperlipidemia. The elevated AST is of unclear etiology and importance. Cardiac hepatopathy can cause abnormal liver tests. Her BNP is high but is asymptomatic, so is less likely. She could have fatty liver. It is also possible the AST is related to muscle. Lab work will be repeated and if elevated an ultrasound will be ordered to further investigate the cause of the abnormal labs. Will follow up with the patient when these results are available. This patient was seen by Lena WILKINS Mental Status Date Cognitive Assessment Orientation - [place] ed to time, place, person, situation. Patient Care Teams Name Effective Dates (start - stop) Status Members No Information
--- OUTSIDE RECORDS SUMMARY | 2024-06-24 21:50 | XMS_ITS | Encounter Summary ---
Author Organization [facility] Address [address] [place] [address] Care Team Providers Care Resident In Diagnostic Radiology Name Role Phone Elsewhere, Pcp Primary Care Provider Unavailabl e Encounter Details Date Type Department Care Team (Latest Contact Info) Description 04/29/2024 4:00 AM CDT - 04/29/2024 11:59 PM CDT Hospital Encounter Department of Cardiovascular Diseases in [place], [place] [address] [place] [address] Trenton Rogers M.D., M.P.H. [address] [place] [phone] Encounter For Checking And Testing Of Cardiac Pacemaker Pulse Generator Battery Discharge Disposition: Home or Self Care Social History Tobacco Use Types Packs/Day Years [...] 01/19/2023 How often do you attend chur ch or judaism services? More than 4 times per year 01/19/2023 Do you belong to any clubs o r organizations such as moravian groups, unions, fraternal or athletic groups, or [...] and heating? Not hard at all 01/19/2023 [facility] - Occupational [...] Orientation Straight 01/19/2023 1: 44 PM CDT documented as of this encounter Medications at Time of Discharge Medication Sig Dispensed Refills Start Date End Date lisinopril-hydroCHLOROthia zide (PRINZIDE,ZESTORETIC) 20-12.5 mg per tablet 1 tablet daily. 10/01/2022 metoprolol tartrate (LOPRESSOR) 50 mg tablet Take 1 tablet by mouth 2 (two) times a day. 07/25/2015 MULTIVITAMIN ORAL Take 1 tablet by mouth daily. 06/23/2010 simvastatin (ZOCOR) 10 mg tablet Take 1 tablet by mouth at bedtime. 07/20/2015 warfarin (COUMADIN) 3 mg tablet Take 3 mg by mouth daily. Weds and Sat. 4.5 MG all other days takes 3MG 07/26/2022 documented as of this encounter Plan of Treatment Not on file documented as of this encounter Procedures Procedure Name Priority Date/Time Associated Diagnosis Comments PACER REMOTE FOLLOW UP Routine 05/06/2024 10:46 AM CDT Encounter For Checking And Testing Of Cardiac Pacemaker Pulse Generator Battery documented in this encounter Results * PACER REMOTE FOLLOW UP (05/06/2024 10:46 AM CDT) Date Time Interrogation Session [id number] [facility] Implantable Pulse Generator Molding Associate Salesforce Buddy Mediatronic [facility] Implantable Pulse Generator Model [id number] [place] XT DR MRI [facility] Implantable Pulse Generator Serial Number [id number] [facility] Type Interrogation Session Remote [facility] Clinic Name [facility] Implantable Pulse Generator Type Pacemaker [facility] Implantable Pulse Generator Implant Date [id number] [facility] Implantable Lead Molding Associate Medtronic [facility] Implantable Lead Model 4076 CapsureFix Novus MRI SureScan [facility] Implantable Lead Serial Number [id number] [facility] Implantable Lead Implant Date [id number] [facility] Implantable Lead Polarity Type Bipolar Lead [facility] Implantable Lead Location Detail 1 Endocardial [facility] Implantable Lead Special Function Lead length: 52 cm [facility] Implantable Lead Location Right Ventricle [facility] Implantable Lead Molding Associate Medtronic [facility] Implantable Lead Model 4076 CapsureFix Novus MRI SureScan [facility] Implantable Lead Serial [facility] [id number] [facility] Implantable Lead Implant Date [id number] [facility] Implantable Lead Polarity Type Bipolar Lead [facility] Implantable Lead Location Detail 1 Endocardial [facility] Implantable Lead Special Function Lead length: 45 cm [facility] Implantable Lead Location Right Atrium [facility] Jairo Setting Mode (NBG Code) DDDR [facility] Jairo Setting Lower Rate Limit 60 {beats}/ min [facility] Jairo Setting Maximum Tracking Rate 120 {beats}/ min [facility] Jairo Setting Maximum Sensor Rate 120 {beats}/ min [facility] Jairo Setting NAYELY Delay Low 140 ms [facility] Jairo Setting PAV Delay Low 170 ms [facility] Jairo Setting PAV Delay High 140 ms [facility] Jairo Setting NAYELY Delay High 110 ms [facility] Jairo Setting AT Mode Switch Rate 150 {beats}/ min [facility] Jairo Setting AT Mode Switch Mode DDIR [facility] Lead Channel Setting Sensing Polarity Bipolar [facility] Lead Channel Setting Sensing Anode Location Right Atrium [facility] Lead Channel Setting Sensing Anode Terminal Ring [facility] Lead Channel Setting Sensing Cathode Location Right Atrium [facility] Lead Channel Setting Sensing Cathode Terminal Tip [facility] Lead Channel Setting Sensing Sensitivity 0.3 mV [facility] Lead Channel Setting Sensing Adaptation Mode Fixed [facility] Lead Channel Setting Sensing Polarity Bipolar [facility] Lead Channel Setting Sensing Anode Location Right Ventricle [facility] Lead Channel Setting Sensing Anode Terminal Ring [facility] Lead Channel Setting Sensing Cathode Location Right Ventricle [facility] Lead Channel Setting Sensing Cathode Terminal Tip [facility] Lead Channel Setting Sensing Sensitivity 0.9 mV [facility] Lead Channel Setting Sensing Adaptation Mode Fixed [facility] Lead Channel Setting Pacing Polarity Bipolar [facility] Lead Channel Setting Pacing Anode Location Right Atrium [facility] Lead Channel Setting Pacing Anode Terminal Ring [facility] Lead Channel Setting Sensing Cathode Location Right Atrium [facility] Lead Channel Setting Sensing Cathode Terminal Tip [facility] Lead Channel Setting Pacing Pulse Width 0.4 ms [facility] Lead Channel Setting Pacing Amplitude 1.5 V [facility] Lead Channel Setting Pacing Capture Mode Adaptive [facility] Lead Channel Setting Pacing Polarity Bipolar [facility] Lead Channel Setting Pacing Anode Location Right Ventricle [facility] Lead Channel Setting Pacing Anode Terminal Ring [facility] Lead Channel Setting Sensing Cathode Location Right Ventricle [facility] Lead Channel Setting Sensing Cathode Terminal Tip [facility] Lead Channel Setting Pacing Pulse Width 0.4 ms [facility] Lead Channel Setting Pacing Amplitude 2 V [facility] Lead Channel Setting Pacing Capture Mode Adaptive [facility] Zone Setting Type Category VF [facility] Zone Setting Type Category VT [facility] Zone Setting Type Category VT [facility] Zone Setting Type Category VT [facility] Zone Setting Detection Interval 350 ms [facility] Zone Setting Type Category ATRIAL_FIBRILLATI ON [facility] Zone Setting Type Category AT/AF [facility] Zone Setting Detection Interval 400 ms [facility] Lead Channel Impedance Value 437 ohm [facility] Lead Channel Impedance Value 361 ohm [facility] Lead Channel Sensing Intrinsic Amplitude 3.75 mV [facility] Lead Channel Impedance Value 437 ohm [facility] Lead Channel Impedance Value 285 ohm [facility] Lead Channel Sensing Intrinsic Amplitude 16.125 mV [facility] Lead Channel Pacing Threshold Amplitude 0.625 V [facility] Lead Channel Pacing Threshold Pulse Width 0.4 ms [facility] Battery Date Time of Measurements [id number] [facility] Battery CRIME SCENE TECHNICIAN Trigger 2.625 [facility] Battery Remaining [...] [facility] Atrial Tachy Statistic AT/AF [place] Percent 100 % [facility] Episode [...] SYSTEM Episode Statistic Recent Date Time End [id number] [facility] Episode Statistic Recent Date Time Start [facility] Episode Statistic Recent Date Time End [id number] [facility] Episode Statistic Recent Date Time Start [facility] Episode Statistic Recent Date Time End [id number] [facility] Episode Statistic Recent Date Time Start [facility] Episode Statistic Recent Date Time End [id number] [facility] Episode Statistic Recent Date Time Start [facility] Episode Statistic Recent Date Time End [id number] [facility] Episode Statistic Total Count [...] SYSTEM Episode Statistic Total Date Time Start [id number] [facility] Episode Statistic Total Date Time End [id number] [facility] Episode Statistic Total Date Time Start [id number] [facility] Episode Statistic Total Date Time End [id number] [facility] Episode Statistic Total Date Time Start [facility] Episode Statistic Total Date Time End [id number] [facility] Episode Statistic Total Date Time Start [id number] [facility] Episode Statistic Total Date Time End [id number] [facility] Episode Statistic Total Date Time Start [id number] [facility] Episode Statistic Total Date Time End [id number] [facility] Episode Identifier 355 [facility] Episode Type Category Monitor [facility] Episode Date Time [id number] [facility] Episode Identifier 354 [facility] Episode Type Category Monitor [facility] Episode Date Time [id number] [facility] Episode Duration 2,114 s [facility] Episode Identifier 353 [facility] Episode Type Category Monitor [facility] Episode Date Time [id number] [facility] Episode Duration 88,441 s [facility] Episode Identifier 352 [facility] Episode Type Category Monitor [facility] Episode Date Time [id number] [facility] Episode Duration 9,644 s [facility] Episode Identifier 351 [facility] Episode Type Category Monitor [facility] Episode Date Time [id number] [facility] Episode Duration 429,641 s [facility] Episode Identifier 350 [facility] Episode Type Category Monitor [facility] Episode Date Time [id number] [facility] Episode Duration 1,166 s [facility] Episode Identifier 349 [facility] Episode Type Category Monitor [facility] Episode Date Time [id number] [facility] Episode Duration 151,860 s [facility] Episode Identifier 348 [facility] Episode Type Category Monitor [facility] Episode Date Time [id number] [facility] Episode Duration 6,946 s [facility] Episode Identifier 347 [facility] Episode Type Category Monitor [facility] Episode Date Time [id number] [facility] Episode Duration 81,644 s [facility] Episode Identifier 346 [facility] Episode Type Category Monitor [facility] Episode Date Time [id number] [facility] Episode Duration 93,997 s [facility] Episode Identifier 345 [facility] Episode Type Category Monitor [facility] Episode Date Time [id number] [facility] Episode Duration 93,828 s [facility] Episode Identifier 344 [facility] Episode Type Category Monitor [facility] Episode Date Time [id number] [facility] Episode Duration 400 s [facility] Episode Identifier 343 [facility] Episode Type Category Monitor [facility] Episode Date Time [id number] [facility] Episode Duration 1,118,301 s [facility] Episode Identifier 342 [facility] Episode Type Category Monitor [facility] Episode Date Time [id number] [facility] Episode Duration 3,324 s [facility] Episode Identifier 341 [facility] Episode Type Category Monitor [facility] Episode Date Time [id number] [facility] Episode Duration 83,516 s [facility] Episode Identifier 340 [facility] Episode Type Category Monitor [facility] Episode Date Time [id number] [facility] Episode Duration 14,678 s [facility] Episode Identifier 339 [facility] Episode Type Category Monitor [facility] Episode Date Time [id number] [facility] Episode Duration 496,921 s [facility] Episode Identifier 338 [facility] Episode Type Category Monitor [facility] Episode Date Time [id number] [facility] Episode Duration 83,144 s [facility] Episode Identifier 337 [facility] Episode Type Category Monitor [facility] Episode Date Time [id number] [facility] Episode Duration 104,621 s [facility] Episode Identifier 336 [facility] Episode Type Category Monitor [facility] Episode Date Time [id number] [facility] Episode Duration 1,948,583 s [facility] Episode Identifier 335 [facility] Episode Type Category Monitor [facility] Episode Date Time [id number] [facility] Episode Duration 116,384 s [facility] Episode Identifier 334 [facility] Episode Type Category Monitor [facility] Episode Date Time [id number] [facility] Episode Duration 129 s [facility] Episode Identifier 333 [facility] Episode Type Category Monitor [facility] Episode Date Time [id number] [facility] Episode Duration 148,973 s [facility] Episode Identifier 332 [facility] Episode Type Category Monitor [facility] Episode Date Time [id number] [facility] Episode Duration 107,226 s [facility] Episode Identifier 331 [facility] Episode Type Category Monitor [facility] Episode Date Time [id number] [facility] Episode Duration 63,198 s [facility] Episode Identifier 330 [facility] Episode Type Category Monitor [facility] Episode Date Time [id number] [facility] Episode Duration 812 s [facility] Episode Identifier 329 [facility] Episode Type Category Monitor [facility] Episode Date Time [id number] [facility] Episode Duration 6,367 s [facility] Episode Identifier 328 [facility] Episode Type Category Monitor [facility] Episode Date Time [id number] [facility] Episode Duration 19,447 s [facility] Episode Identifier 327 [facility] Episode Type Category Monitor [facility] Episode Date Time [id number] [facility] Episode Duration 74,124 s [facility] Episode Identifier 326 [facility] Episode Type Category Monitor [facility] Episode Date Time [id number] [facility] Episode Duration 173,893 s [facility] Episode Identifier 325 [facility] Episode Type Category Monitor [facility] Episode Date Time [id number] [facility] Episode Duration 1,543 s [facility] Episode Identifier 324 [facility] Episode Type Category Monitor [facility] Episode Date Time [id number] [facility] Episode Duration 78,618 s [facility] Episode Identifier 323 [facility] Episode Type Category Monitor [facility] Episode Date Time [id number] [facility] Episode Duration 257,526 s [facility] Episode Identifier 322 [facility] Episode Type Category Monitor [facility] Episode Date Time [id number] [facility] Episode Duration 104,234 s [facility] Episode Identifier 321 [facility] Episode Type Category Monitor [facility] Episode Date Time [id number] [facility] Episode Duration 340,618 s [facility] Episode Identifier 320 [facility] Episode Type Category Monitor [facility] Episode Date Time [id number] [facility] Episode Duration 153,607 s [facility] Episode Identifier 319 [facility] Episode Type Category Monitor [facility] Episode Date Time [id number] [facility] Episode Duration 101,594 s [facility] Episode Identifier 318 [facility] Episode Type Category Monitor [facility] Episode Date Time [id number] [facility] Episode Duration 80,032 s [facility] Episode Identifier 317 [facility] Episode Type Category Monitor [facility] Episode Date Time [id number] [facility] Episode Duration 38 s [facility] Episode Identifier 316 [facility] Episode Type Category Monitor [facility] Episode Date Time [id number] [facility] Episode Duration 93 s [facility] Episode Identifier 315 [facility] Episode Type Category Monitor [facility] Episode Date Time [id number] [facility] Episode Duration 203 s [facility] Episode Identifier 314 [facility] Episode Type Category Monitor [facility] Episode [facility] Time [id number] [facility] Episode Duration 381 s [facility] Episode Identifier 313 [facility] Episode Type Category Monitor [facility] Episode Date Time [id number] [facility] Episode Duration 28 s [facility] Episode Identifier 312 [facility] Episode Type Category Monitor [facility] Episode Date Time [id number] [facility] Episode Duration 1,270 s [facility] Episode Identifier 311 [facility] Episode Type Category Monitor [facility] Episode Date Time [id number] [facility] Episode Duration 103 s [facility] Episode Identifier 310 [facility] Episode Type Category Monitor [facility] Episode Date Time [id number] [facility] Episode Duration 31 s [facility] Episode Identifier 309 [facility] Episode Type Category Monitor [facility] Episode Date Time [id number] [facility] Episode Duration 48 s [facility] Episode Identifier 308 [facility] Episode Type Category Monitor [facility] Episode Date Time [id number] [facility] Episode Duration 50 s [facility] Episode Identifier 307 [facility] Episode Type Category Monitor [facility] Episode Date Time [id number] [facility] Episode Duration 13,153 s [facility] Episode Identifier 306 [facility] Episode Type Category Monitor [facility] Episode Date Time [id number] [facility] Episode Duration 85,393 s [facility] Episode Identifier 305 [facility] Episode Type Category Monitor [facility] Episode Date Time [id number] [facility] Episode Duration 73,689 s [...] follow-up will be in 3 months via [employer] remote transmission DEVICE RN: Pauly Barraza RN Provider statement: This patient underwent device interrogation. I agree that the device interrogation was medically indicated to provide appropriate care and continue routine device interrogations as indicated. Trenton Rogers M.D., M.P.H. CV IMPLANTAB LE CARDIAC DEVICE documented in this encounter Visit Diagnoses Diagnosis Encounter For Checking And Testing Of Cardiac Pacemaker Pulse Generator Battery documented in this encounter Care Teams Resident In Diagnostic Radiology Relationship Specialty Start Date End Date Elsewhere, Pcp PCP - General Internal Medicine 10/26/22 documented as of this encounter
--- OUTSIDE RECORDS SUMMARY | 2024-06-24 21:50 | XMS_ITS | Clinical Summary ---
Author Organization [employer] [facility] [employer] [facility] Address [place], [place] [address] Care Team Providers Care Community Advocate Name Role Phone Lizzy Diaz MD Primary Care Provider Allergies No known active allergies Medications Medication Sig Dispensed Refills Start Date End Date Status MULTIVITAMIN ORAL 1 tab daily 0 Active VIACTIV 500 MG-100 UNIT-40 MCG ORAL CHEW 1 tab tid 0 08/05/2004 Act flory ATENOLOL 50 MG TAB 1 tablet orally daily 3 month 3 10/15/2007 Active MECLIZINE 25 MG TAB take 1 tablet orally twice a day as needed 30 1 03/13/2008 Active HYDROCHLOROTHIAZIDE 25 MG TAB TAKE 1 TABLET BY MOUTH DAILY 30 1 12/24/2008 Active Active Problems Problem Noted Date Diagnosed Date FAMILY HX OF MALIG NEOPLSM OF BREAST-2 sisters 0 10/15/2007 FAMILY HX OF ISCHEMIC HEART DISEASE-mother [place] in 50s, father in 70s 10/15/2007 MILD MITRAL REGURGITATION, mild LAE, EF 55% on T TE 07/3008/15/2006 Palpitations 08/01/2006 Overview (08/15/2006): labs normal TTE- normal EF, nl LV size, mild MR and TR, LAE Routine general medical exam ination at a health care facility 08/15/2005 Overview (10/29/2007): PE:10/01 pap: 07/29, all normal in past- none further mammo: 06/30 hx of breast cancer- Dr. Lane dexa: 07/30-osteopenia calcium: 2-3 dairy, mv, viactiv tid exercise: walks 3 miles daily colon: 06/2004-polyp (Dr. 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 Lane q3 months. 09/24/2000 HYPERTENSION-TTE 07/30- EF 5 5-60%, nl LV size, trace/mild MR, mild LAE Overview (10/29/2007): 07/30- LVH on EKG- schedule TTE- no LVH Immunizations Name Administration Dates Next Due Influenza, IIV3 (Age >=3 years) 07/25/2007,07/25,08/05/2004 Pneumococcal Poly,23-Valent (Pneumovax) 03/11/20 04 Td (Age >=7 Years) 03/11/2004 Family History Medical History Relation Name Comments Heart Disease Father in 90s of CAD/CHF Heart Disease Mother onset late 50s Cancer-breast [...] Packs/Day Years Used Date Smoking Tobacco: Never Alcohol Use Standard Drinks/Week Comments Yes 0 (1 standard drink = 0.6 oz pur e alcohol) seldom Sex and Gender Information Value Date Recorded Sex Assigned at Not on file Gender Identity Not on file Sexual Orientation Not on file Obstetrics History Last Filed Vital Signs Vital Sign Reading Time Taken Comments Blood Pressure 120/60 03/13/2008 1:08 PM CDT Pulse 64 10/15/2007 1:34 PM [employer] Temperature 36.6 ??C (97.9 ??F) 03/08/2007 1:45 PM CD T Respiratory Rate - - Oxygen Saturation - - Inhaled Oxygen Concentration - - Weight 80.6 kg (177 lb 9.6 oz) 03/13/2008 1:08 P M CDT Height 170.2 cm (5' 7) 10/15/2007 1:34 PM [employer] Body Mass Index 27.82 10/15/2007 1:34 PM [employer] Plan of Treatment Health Maintenance Due Date Last Done Comments Tdap 1946 Depression screening for age 12+ 1947 BMI (ht and wt on same day) for age 18+ 1953 Zoster (shingles) series for age 50+ (1 of 2) 1985 Pneumococcal series for age 65+ (2 of 2 - PCV) 03/11/2005 03/11/2004 RSV vaccine for adults or pr egnancy (1 - 1-dose 75+ series) 2010 Tetanus booster 03/11/2014 03/11/2004 COVID-19 vaccine series (2023- season) 2024 Influenza for age 65+ 05/25/2024 07/25/2007 , 07/25/2006, 08/05/2004 DEXA/DXA scan for age 65+ Completed 06/18/2008 Procedures Procedure Name Priority Date/Time Associated Diagnosis Comments XR DXA BONE DENSITY 2 SITES AXIAL Routine 06/18/2008 10:47 AM CDT Malignant Neoplasm of Breast (Female), Unspecified Site from Last 3 Months or Most Recently Relevant to Health Maintenance Results * XR DEXA BONE DENSITY 2 SITES (06/18/2008 10:47 AM CDT) Anatomical Region Laterality Modality Spine, HIPS, HIPL, HIPR Bone Den sitometry 06/18/2008 10:4 7 AM CDT Impressions 06/22/2008 9:58 AM CDT This patient's T-score meets the World Health Organization (WHO) criteria for low bone density at one or more measured sites (T-score between less than -1.0 and greater than -2.5). ?? The risk of osteoporotic fracture increases approximately two-fold for each 1.0 SD decrease in T-score. The scan details are available in the patient? s chart on [employer]. A new tool has been developed which may be very helpful for your patients. ??It is the WHO Fracture Risk Assessment Tool and it calculates the 10 year probability of fracture. ??This is for patients who are not being treated, to help in the decision of when to treat. ??More information and the calculation tool can be found at this website: ?? http://www.shef.ac.uk/FRAX/ Please note: Advancing age is an independent risk factor from low bone mineral density for fragility fracture. In the hip the lowest T-score of the total hip or femoral neck is used. For comparison with previous studies L1 to L4 and the total hip are used because larger areas give better precision. If the BMD has increased or is stable compared to previous studies, the patient is responding satisfactorily according to the International Society for Clinical Densitometry (ISCD). General recommendations for follow-up studies for patients with abnormal bone mineral density: ??Typically one year after initiation or change in therapy is appropriate, with longer intervals once therapeutic effect is established. ??In conditions associated with rapid bone loss, such as glucocorticoid therapy, testing more frequently is appropriate. DXA scans are compared to prior studies for a patient only when the two (or more) studies were performed on the same scanner. ??It is not possible to compare data generated on one scanner to data from another because there are not standards in DXA equipment as there are in mammography and other areas of radiology. ??This applies even if the two scanners are made by the same pediatric surgeon. Elizabeth Henson MD. Breast Radiologist [facility] Narrative 06/22/2008 9:58 AM CDT DXA BONE MINERAL DENSITY ??06/18/08 CLINICAL HISTORY: ??This is a 72-year-old female patient. RISK FACTORS FOR LOW BONE MINERAL DENSITY: ??The patient has estrogen deficiency. ??The patient has a history of breast cancer. TECHNIQUE: ??The patient was scanned on a [employer] scanner, fast array scan mode. ??The study was technically adequate but compromised by proliferative changes in the spine. ??The following sites were used for analysis: ??PA lumbar spine: ??L1 to L3, ??Right hip: ??Femoral neck, ??Left hip: ??Femoral neck. FINDINGS: BMD T-Score Z-Score Lumbar Spine (L1 to L3) 0.941 g/cm2 -2.0 -0.7 Right Hip (Femoral neck) 0.800 g/cm2 -2.0 -0.2 Left Hip (Femoral neck) 0.768 g/cm2 -2.3 -0.5 Procedure Note Holli Mccall MD - 06/22/2008 DXA BONE MINERAL DENSITY 06/18/08 CLINICAL HISTORY: This is a 72-year-old female patient. RISK FACTORS FOR LOW BONE MINERAL DENSITY: The patient has estrogendeficiency. The patient has a history of breast cancer. TECHNIQUE: The patient was scanned on a [employer] scanner, fastarray scan mode. The study was technically adequate but compromised byproliferative changes in the spine. The following sites were used foranalysis: PA lumbar spine: L1 to L3, Right hip: Femoral neck, Lefthip: Femoral neck. FINDINGS: BMD T-Score Z-Score Lumbar Spine (L1 to L3) 0.941 g/cm2 -2.0 -0.7 Right Hip (Femoral neck) 0.800 g/cm2 -2.0 -0.2 Left Hip (Femoral neck) 0.768 g/cm2 -2.3 -0.5 IMPRESSION: This patient's T-score meets the World Health Organization (WHO) criteriafor low bone density at one or more measured sites (T-score between lessthan -1.0 and greater than -2.5). The risk of osteoporotic fractureincreases approximately two-fold for each 1.0 SD decrease in T-score. The scan details are available in the patient? s chart on [employer]. A new tool has been developed which may be very helpful for your patients.It is the WHO Fracture Risk Assessment Tool and it calculates the 10 yearprobability of fracture. This is for patients who are not being treated,to help in the decision of when to treat. More information and thecalculation tool can be found at this website:http://www.shef.ac.uk/FRAX/ Please note: Advancing age is an independent risk factor from low bone mineral densityfor fragility fracture. In the hip the lowest T-score of the total hip or femoral neck is used. For comparison with previous studies L1 to L4 and the total hip are usedbecause larger areas give better precision. If the BMD has increased or is stable compared to previous studies, thepatient is responding satisfactorily according to the InternationalSociety for Clinical Densitometry (ISCD). General recommendations for follow-up studies for patients with abnormalbone mineral density: Typically one year after initiation or change intherapy is appropriate, with longer intervals once therapeutic effect isestablished. In conditions associated with rapid bone loss, such asglucocorticoid therapy, testing more frequently is appropriate. DXA scans are compared to prior studies for a patient only when the two(or more) studies were performed on the same scanner. It is not possibleto compare data generated on one scanner to data from another becausethere are not standards in DXA equipment as there are in mammography andother areas of radiology. This applies even if the two scanners are madeby the same pediatric surgeon. Elizabeth Henson MD. Breast Radiologist [facility] Brett Lane MD DEXA from Last 3 Months or Most Recently Relevant to Health Maintenance Advance Directives * No Code Status (Latest Code Status on File) Date Activated Date Inactivated Comments 08/07/2004 10:50 PM 08/07/2004 11:50 PM Care Teams Community Advocate Relationship Specialty Start Date End Date Lizzy Diaz MD [facility] - General 07/10/10
== END 2024-06-20 08:56 | disposition home or self-care (01) ==
LOC: NFLDREF 06-24 21:47
PROVIDERS: PCP Emergency Medicine; Referring Provider Emergency Medicine; Visit Provider Emergency Medicine
DX: I10 Essential (primary) hypertension (principal); E78.2 Mixed hyperlipidemia; I48.91 Unspecified atrial fibrillation; M81.0 Age-related osteoporosis without current pathological fracture; R41.89 Other symptoms and signs involving cognitive functions and awareness; R21 Rash and other nonspecific skin eruption; Z79.01 Long term (current) use of anticoagulants
CPT/HCPCS: 80048; 80061; 82306; 82607; 84100; 84443

== ENCOUNTER 2024-07-14 14:18 | Outpatient (CLI) | payer MEDICARE, SELFPAY ==
--- OUTSIDE RECORDS SUMMARY | 2024-07-14 14:27 | XMS_ITS | Clinical Summary ---
Author Organization [facility] Address [address] [place] [address] Care Team Providers Care Camelid Fiber Sorter Name Role Phone Elsewhere, Pcp Primary Care Provider Unavailabl e Source Comments Patient records contain information from all sites at [facility]. For routine questions regarding patient records, call [phone] during business hours, M-F 8:00 AM - 5:00 PM Central Time. Record requests for emergency care only can be directed to [phone] at any time.[facility] Allergies No known active allergies Medications metoprolol tartrate (LOPRESSOR) 50 mg tablet Take 1 tablet by mouth 2 (two) times a day. 07/25/2015 Active MULTIVITAMIN ORAL Take 1 tablet by mouth daily. 06/23/2010 Active simvastatin (ZOCOR) 10 mg tablet Take 1 tablet by mouth at bedtime. 07/20/2015 Active lisinopril-hydro CHLOROthiazide (PRINZIDE,ZESTOR ETIC) 20-12.5 mg per tablet 1 tablet daily. [...] (10/16/2022): Added automatically from request for surgery [id number] Hyperlipidemia 06/24/2010 Hypertension 06/22/2010 Atrial Fibrillation Unspecified 06/22/2010 Encounters Date Type Department Care Team Description 04/29/2024 4:00 AM CDT - 04/29/2024 11:59 PM CDT Hospital Encounter Department of Cardiovascular Diseases in [place], [place] [address] [place] [address] Trenton Rogers M.D., M.P.H. Encounter For Checking [...] week 01/19/2023 How often do you attend [facility] or church services? More than 4 times per year 01/19/2023 Do you belong to any clubs o r organizations such as restorationist groups, unions, fraternal or athletic groups, or [...] and heating? Not hard at all 01/19/2023 [facility] - Occupational [...] degree you have received? 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 Gender Identity Female 01/19/2023 1:44 PM CDT [...] 09/2022, 07/25/2015, Additional history exists COVID-19 Vaccine ( - 2023-2 5 season) 2024 07/12/2023, 07/07/2021, 11/20/2020, Additional history exists Influenza Vaccine (#1) 2024 , 08/03/2022, 06/23/2021, Additional history exists DTaP,Tdap,and Td Vaccines (2 - Td or Tdap) 08/03/2026 08/03/2016, 02/22/2010 Pneumococcal vaccine (65+ years) Completed 09/29/2020, 08/03/2016, 03/11/2004 Medical Devices Implanted Type Area Automobile Painter Device Identifier Shelf Expiration Date Model / Serial / Lot Lead 4076-52 Capsurefix Novus - Coleman [id number] Implanted:Qty: 1 on 08/04/2010 by Damian Pugh M.D., Ph.D. Cardiac Lead Heart Medtronic / [id number] / Description:Device Manufactu rer - Medtronic [employer]. Body Location - ?. Right Ventricle. Device Status Text - [id number] [id number]. Lead 4076-45 Capsurefix Novus - Coleman [id number] Implanted:Qty: 1 on 08/04/2010 Cardiac Lead Heart Medtronic / [id number] / Description:Device Manufactu rer - Medtronic [employer] Inc. Body Location - ?. Right Atrial. Device Status Text - CARD [id number]. Valve Trifecta 23mm Tis - Coleman [id number] Implanted:Qty: 1 on 07/20/[address] [facility] [employer] [facility] Description:Device Manufactu rer - [facility] Body Location - Other. Aortic. Device Status Text - [id number]. Envelope Md Olmos - [id number] Implanted:Qty: 1 on 10/26/2022 by Damian Pugh M.D., Ph.D. at [facility] Mesh or Patch Medtronic 07/19/2023 [id number] / / [id number] Conversions - Default Historical Implant Device Implanted:06/25 (Quantity not on file) Ocular Lens Other/Legacy - See Implant Description Description:Body Location - mariela eyes. Device Status Text - OculrLens. Ppm [place] [address] Armenta [id number] - [id number] Implanted:Qty: 1 on 10/26/2022 by Damian Pugh M.D., Ph.D. at [facility] Pacemaker Medtronic 03/21/2024 [id number] / [id number] / Explanted Type Area Automobile Painter Device Identifier Shelf Expiration Date Model / Serial / Lot Pacer [id number] S[address]ia [address] Geovany Coleman [id number] Implanted:Qty: 1 on 08/04/2010 Explanted:Qty: 1 on 10/26/2022 by Damian Pugh M.D., Ph.D. at [facility] Pacemaker Right: Other/Legacy - See Implant Description Medtronic / [id number] / Description:Device Manufactu rer - Medtronic [employer] Body Location - Right. Device Status Text - [id number]. Procedures Procedure Name Priority Date/Time Associated Diagnosis [...] 10:46 AM CDT) Date Time Interrogation Session [id number] [facility] Implantable Pulse Generator Automobile Painter Medtronic [facility] Implantable Pulse Generator Model [id number] [place] XT DR MRI [facility] Implantable Pulse Generator Serial Number [id number] [facility] Type Interrogation Session Remote [facility] Clinic Name [facility] Implantable Pulse Generator Type Pacemaker [facility] Implantable Pulse Generator Implant Date 20221026 [facility] Implantable Lead Automobile Painter Medtronic [facility] Implantable Lead Model 4076 CapsureFix Novus Hapticom SureScan [facility] Implantable Lead Serial Number [id number] [facility] Implantable Lead Implant Date [id number] [facility] Implantable Lead Polarity Type Bipolar Lead [facility] Implantable Lead Location Detail 1 Endocardial [facility] Implantable Lead Special Function Lead length: 52 cm [facility] Implantable Lead Location Right Ventricle [facility] Implantable Lead Automobile Painter Medtronic [facility] Implantable Lead Model 4076 CapsureFix Novus Hapticom SureZollo [facility] Implantable Lead Serial Number [id number] [facility] Implantable Lead Implant Date 20100804 [facility] Implantable Lead Polarity Type Bipolar Lead [facility] Implantable Lead Location Detail 1 Endocardial [facility] Implantable Lead Special Function Lead length: 45 cm [facility] Implantable Lead Location Right Atrium [facility] [place] Setting Mode (NBG Code) DDDR [facility] [place] Setting Lower Rate Limit 60 {beats}/ min [facility] [place] Setting Maximum Tracking Rate 120 {beats}/ min [facility] [place] Setting Maximum Sensor Rate 120 {beats}/ min [facility] [place] Setting NAYELY Delay Low 140 ms [facility] [place] Setting PAV Delay Low 170 ms [facility] [place] Setting PAV Delay High 140 ms [facility] [place] Setting NAYELY Delay High 110 ms [facility] [place] Setting AT Mode Switch Rate 150 {beats}/ min [facility] [place] Setting AT Mode Switch Mode DDIR [facility] Lead Channel Setting Sensing Polarity Bipolar [facility] Lead Channel Setting Sensing Anode Location Right Atrium [facility] Lead Channel Setting Sensing Anode Terminal Ring [facility] Lead Channel Setting Sensing Cathode Location Right Atrium [facility] Lead Channel Setting Sensing Cathode Terminal Tip [facility] Lead Channel Setting Sensing Sensitivity 0.3 mV [facility] Lead Channel Setting Sensing Adaptation Mode Fixed [facility] Lead Channel Setting Sensing Polarity Bipolar [facility] Lead Channel Setting Sensing Anode Location Right Ventricle [facility] Lead Channel Setting Sensing Anode Terminal Ring [facility] Lead Channel Setting Sensing Cathode Location Right Ventricle [facility] Lead Channel Setting Sensing Cathode Terminal Tip [facility] Lead Channel Setting Sensing Sensitivity 0.9 mV [facility] Lead Channel Setting Sensing Adaptation Mode Fixed [facility] Lead Channel Setting Pacing Polarity Bipolar [facility] Lead Channel Setting Pacing Anode Location Right Atrium [facility] Lead Channel Setting Pacing Anode Terminal Ring [facility] Lead Channel Setting Sensing Cathode Location Right Atrium [facility] Lead Channel Setting Sensing Cathode Terminal Tip [facility] Lead Channel Setting Pacing Pulse Width 0.4 ms [facility] Lead Channel Setting Pacing Amplitude 1.5 V [facility] Lead Channel Setting Pacing Capture Mode Adaptive [facility] Lead Channel Setting Pacing Polarity Bipolar [facility] Lead Channel Setting Pacing Anode Location Right Ventricle [facility] Lead Channel Setting Pacing Anode Terminal Ring [facility] Lead Channel Setting Sensing Cathode Location Right Ventricle [facility] Lead Channel Setting Sensing Cathode Terminal Tip [facility] Lead Channel Setting Pacing Pulse Width 0.4 ms [facility] Lead Channel Setting Pacing Amplitude 2 V [facility] Lead Channel Setting Pacing Capture Mode Adaptive [facility] Zone Setting Type Category VF [facility] Zone Setting Type Category VT [facility] Zone Setting Type Category VT [facility] Zone Setting Type Category VT [facility] Zone Setting Detection Interval 350 ms [facility] Zone Setting Type Category ATRIAL_FIBRILLATI ON [facility] Zone Setting Type Category AT/AF [facility] Zone Setting Detection Interval 400 ms [facility] Lead Channel Impedance Value 437 ohm [facility] Lead Channel Impedance Value 361 ohm [facility] Lead Channel Sensing Intrinsic Amplitude 3.75 mV [facility] Lead Channel Impedance Value 437 ohm [facility] Lead Channel Impedance Value 285 ohm [facility] Lead Channel Sensing Intrinsic Amplitude 16.125 mV [facility] Lead Channel Pacing Threshold Amplitude 0.625 V [facility] Lead Channel Pacing Threshold Pulse Width 0.4 ms [facility] Battery Date Time of Measurements [id number] [facility] Battery ANGLE BENDER Trigger 2.625 [facility] Battery Remaining Longevity 136 mo [facility] Battery Voltage 3.03 V [facility] [place] Statistic Date Time Start [id number] [facility] [place] Statistic Date Time End [id number] [facility] [place] Statistic RA Percent Paced 0.06 % [facility] [place] Statistic RV Percent Paced 99.94 % [facility] Atrial Tachy Statistic Date Time Start [facility] Atrial Tachy Statistic Date Time End [id number] [facility] Atrial Tachy Statistic AT/AF [place] Percent 100 % [facility] Episode [...] SYSTEM Episode Statistic Recent Date Time End [id number] [facility] Episode Statistic Recent Date Time Start [facility] Episode Statistic Recent Date Time End [id number] [facility] Episode Statistic Recent Date Time Start [facility] Episode Statistic Recent Date Time End [id number] [facility] Episode Statistic Total Count [...] SYSTEM Episode Statistic Total Date Time End [id number] [facility] Episode Statistic Total Date Time Start [facility] Episode Statistic Total Date Time End [id number] [facility] Episode Statistic Total Date Time Start [facility] Episode Statistic Total Date Time End [id number] [facility] Episode Statistic Total Date Time Start [facility] Episode Statistic Total Date Time End [id number] [facility] Episode Statistic Total Date Time Start F[facility] Episode Statistic Total Date Time End [id number] [facility] Episode Identifier 355 [facility] Episode Type Category Monitor [facility] Episode Date Time [id number] [facility] Episode Identifier 354 [facility] Episode Type Category Monitor [facility] Episode Date Time [id number] [facility] Episode Duration 2,114 s [facility] Episode Identifier 353 [facility] Episode Type Category Monitor [facility] Episode Date Time [id number] [facility] Episode Duration 88,441 s [facility] Episode Identifier 352 [facility] Episode Type Category Monitor [facility] Episode Date Time [id number] [facility] Episode Duration 9,644 s [facility] Episode Identifier 351 [facility] Episode Type Category Monitor [facility] Episode Date Time [id number] [facility] Episode Duration 429,641 s [facility] Episode Identifier 350 [facility] Episode Type Category Monitor [facility] Episode Date Time [id number] [facility] Episode Duration 1,166 s [facility] Episode Identifier 349 [facility] Episode Type Category Monitor [facility] Episode Date Time [id number] [facility] Episode Duration 151,860 s [facility] Episode Identifier 348 [facility] Episode Type Category Monitor [facility] Episode Date Time [id number] [facility] Episode Duration 6,946 s [facility] Episode Identifier 347 [facility] Episode Type Category Monitor [facility] Episode Date Time [id number] [facility] Episode Duration 81,644 s [facility] Episode Identifier 346 [facility] Episode Type Category Monitor [facility] Episode Date Time [id number] [facility] Episode Duration 93,997 s [facility] Episode Identifier 345 [facility] Episode Type Category Monitor [facility] Episode Date Time [id number] [facility] Episode Duration 93,828 s [facility] Episode Identifier 344 [facility] Episode Type Category Monitor [facility] Episode Date Time [id number] [facility] Episode Duration 400 s [facility] Episode Identifier 343 [facility] Episode Type Category Monitor [facility] Episode Date Time [id number] [facility] Episode Duration 1,118,301 s [facility] Episode Identifier 342 [facility] Episode Type Category Monitor [facility] Episode Date Time [id number] [facility] Episode Duration 3,324 s [facility] Episode Identifier 341 [facility] Episode Type Category Monitor [facility] Episode Date Time [id number] [facility] Episode Duration 83,516 s [facility] Episode Identifier 340 [facility] Episode Type Category Monitor [facility] Episode Date Time [id number] [facility] Episode Duration 14,678 s [facility] Episode Identifier 339 [facility] Episode Type Category Monitor [facility] Episode Date Time [id number] [facility] Episode Duration 496,921 s [facility] Episode Identifier 338 [facility] Episode Type Category Monitor [facility] Episode Date Time [id number] [facility] Episode Duration 83,144 s [facility] Episode Identifier 337 [facility] Episode Type Category Monitor [facility] Episode Date Time [id number] [facility] Episode Duration 104,621 s [facility] Episode Identifier 336 [facility] Episode Type Category Monitor [facility] Episode Date Time [id number] [facility] Episode Duration 1,948,583 s [facility] Episode Identifier 335 [facility] Episode Type Category Monitor [facility] Episode Date Time [id number] [facility] Episode Duration 116,384 s [facility] Episode Identifier 334 [facility] Episode Type Category Monitor [facility] Episode Date Time [id number] [facility] Episode Duration 129 s [facility] Episode Identifier 333 [facility] Episode Type Category Monitor [facility] Episode Date Time [id number] [facility] Episode Duration 148,973 s [facility] Episode Identifier 332 [facility] Episode Type Category Monitor [facility] Episode Date Time [id number] [facility] Episode Duration 107,226 s [facility] Episode Identifier 331 [facility] Episode Type Category Monitor [facility] Episode Date Time [id number] [facility] Episode Duration 63,198 s [facility] Episode Identifier 330 [facility] Episode Type Category Monitor [facility] Episode Date Time [id number] [facility] Episode Duration 812 s [facility] Episode Identifier 329 [facility] Episode Type Category Monitor [facility] Episode Date Time [id number] [facility] Episode Duration 6,367 s [facility] Episode Identifier 328 [facility] Episode Type Category Monitor [facility] Episode Date Time [id number] [facility] Episode Duration 19,447 s [facility] Episode Identifier 327 [facility] Episode Type Category Monitor [facility] Episode Date Time [id number] [facility] Episode Duration 74,124 s [facility] Episode Identifier 326 [facility] Episode Type Category Monitor [facility] Episode Date Time [id number] [facility] Episode Duration 173,893 s [facility] Episode Identifier 325 [facility] Episode Type Category Monitor [facility] Episode Date Time [id number] [facility] Episode Duration 1,543 s [facility] Episode Identifier 324 [facility] Episode Type Category Monitor [facility] Episode Date Time [id number] [facility] Episode Duration 78,618 s [facility] Episode Identifier 323 [facility] Episode Type Category Monitor [facility] Episode Date Time [id number] [facility] Episode Duration 257,526 s [facility] Episode Identifier 322 [facility] Episode Type Category Monitor [facility] Episode Date Time [id number] [facility] Episode Duration 104,234 s [facility] Episode Identifier 321 [facility] Episode Type Category Monitor [facility] Episode Date Time [id number] [facility] Episode Duration 340,618 s [facility] Episode Identifier 320 [facility] Episode Type Category Monitor [facility] Episode Date Time [id number] [facility] Episode Duration 153,607 s [facility] Episode Identifier 319 [facility] Episode Type Category Monitor [facility] Episode Date Time [id number] [facility] Episode Duration 101,594 s [facility] Episode Identifier 318 [facility] Episode Type Category Monitor [facility] Episode Date Time [id number] [facility] Episode Duration 80,032 s [facility] Episode Identifier 317 [facility] Episode Type Category Monitor [facility] Episode Date Time [id number] [facility] Episode Duration 38 s [facility] Episode Identifier 316 [facility] Episode Type Category Monitor F[facility] Episode Date Time [id number] [facility] Episode Duration 93 s [facility] Episode Identifier 315 [facility] Episode Type Category Monitor F[facility] Episode Date Time [id number] [facility] Episode Duration 203 s [facility] Episode Identifier 314 [facility] Episode Type Category Monitor F[facility] Episode Date Time [id number] [facility] Episode Duration 381 s [facility] Episode Identifier 313 [facility] Episode Type Category Monitor [facility] Episode Date Time [id number] [facility] Episode Duration 28 s [facility] Episode Identifier 312 [facility] Episode Type Category Monitor [facility] Episode Date Time [id number] [facility] Episode Duration 1,270 s [facility] Episode Identifier 311 [facility] Episode Type Category Monitor [facility] Episode Date Time [id number] [facility] Episode Duration 103 s [facility] Episode Identifier 310 [facility] Episode Type Category Monitor F[facility] Episode Date Time [id number] [facility] Episode Duration 31 s [facility] Episode Identifier 309 [facility] Episode Type Category Monitor F[facility] Episode Date Time [id number] [facility] Episode Duration 48 s [facility] Episode Identifier 308 [facility] Episode Type Category Monitor [facility] Episode Date Time [id number] [facility] Episode Duration 50 s [facility] Episode Identifier 307 [facility] Episode Type Category Monitor [facility] Episode Date Time [id number] [facility] Episode Duration 13,153 s [facility] Episode Identifier 306 [facility] Episode Type Category Monitor [facility] Episode Date Time [id number] [facility] Episode Duration 85,393 s [facility] Episode Identifier 305 [facility] Episode Type Category Monitor [facility] Episode Date Time [id number] [facility] Episode Duration 73,689 s [...] follow-up will be in 3 months via [facility] remote transmission DEVICE RN: Pauly Barraza RN Provider statement: This patient underwent device interrogation. I agree that the device interrogation was medically indicated to provide appropriate care and continue routine device interrogations as indicated. Trenton Rogers M.D., M.P.H. CV IMPLANTABLE CARDI AC DEVICE Final Result * Sodium (12/21/2022 8:23 AM CDT) Sodium, S 139 135 - 145 mmol/L 12/21/2022 9:38 AM CDT DTL Blood (Blood, Venous) 12/21/2022 8:23 AM CDT 12/21/2022 9:05 AM CDT Esther Berry P.A.-C., M.S. LAB BLOOD ADD-ON Fi nal Result Performing Organization Address [facility] Hospital/[facility]/ZIP Co de Phone Number [facility] [address] [place] [address], [facility] [place] [address] [place] [address] * Potassium (12/21/2022 8:23 AM CDT) Potassium, S 4.1 3.6 - 5.2 mmol/L 12/21/2022 9:38 AM CDT DTL Blood (Blood, Venous) 12/21/2022 8:23 AM CDT 12/21/2022 9:05 AM CDT Esther Berry P.A.-C., M.S. LAB BLOOD ADD-ON Fi nal Result [facility] [address] [place] [address], [facility] [place] [address] [place] [address] * Creatinine with Estimated GFR (12/21/2022 8:23 AM CDT) Creatinine 0.79 0.59 - 1.04 mg/dL 12/21/2022 9:38 AM CDT DTL Estimated GFR (eGFR) 72 >=60 mL/min/BSA 12/21/2022 9:38 AM CDT DTL Comment: Estimated GFR calculated using the 2020 CKD_EPI creatinine equation. Blood (Blood, Venous) 12/21/2022 8:23 AM CDT 12/21/2022 9:05 AM CDT Esther Berry P.A.-C., M.S. LAB BLOOD ADD-ON Fi nal Result [facility] [address] [place] [address], [facility] [address] [place] [address] from Last 3 Months or Most Recently Relevant to Health Maintenance Insurance [facility] Care Teams Camelid Fiber Sorter Relationship Specialty Start Date End Date Elsewhere, Pcp PCP - General Internal Medicine 10/26/22
--- OUTSIDE RECORDS SUMMARY | 2024-07-14 14:28 | XMS_ITS | Encounter Summary ---
Author Organization [facility] Address [address] [place] [id number] Care Team Providers Care Valve Mechanic Name Role Phone Elsewhere, Pcp Primary Care Provider Unavailabl e Encounter Details Date Type Department Care Team (Latest Contact Info) Description 04/29/2024 4:00 AM CDT - 04/29/2024 11:59 PM CDT Hospital Encounter Department of Cardiovascular Diseases in [place], [place] [address] [place] [address] Trenton Rogers M.D., M.P.H. [address] [place] [phone] Encounter For Checking And Testing Of Cardiac [...] often do you attend chur ch or oriental orthodox services? More than 4 times per year 01/19/2023 Do you belong to any clubs o r organizations such as yazidism groups, unions, fraternal or athletic groups, or [...] and heating? Not hard at all 01/19/2023 [facility] - Occupational [...] place to sleep or slept in a retirement (including now)? 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 [...] 10:46 AM CDT) Date Time Interrogation Session [id number] [facility] Implantable Pulse Generator Painter Apprentice Medtronic [facility] Implantable Pulse Generator Model [id number] [place] XT MRI [facility] Implantable Pulse Generator Serial Number [id number] [facility] Type Interrogation Session Remote [facility] Clinic Name [facility] Implantable Pulse Generator Type Pacemaker [facility] Implantable Pulse Generator Implant Date [id number] [facility] Implantable Lead Painter Apprentice Medtronic [facility] Implantable Lead Model 4076 CapsureFix Novus MRI SureScan [facility] Implantable Lead Serial Number [id number] [facility] Implantable Lead Implant Date [id number] [facility] Implantable Lead Polarity Type Bipolar Lead [facility] Implantable Lead Location Detail 1 Endocardial [facility] Implantable Lead Special Function Lead length: 52 cm [facility] Implantable Lead Location Right Ventricle [facility] Implantable Lead Painter Apprentice Medtronic [facility] Implantable Lead Model 4076 CapsureFix Novus MRI SureScan [facility] Implantable Lead Serial Number [id number] [facility] Implantable Lead Implant Date [id number] [facility] Implantable Lead Polarity Type Bipolar Lead [facility] Implantable Lead Location Detail 1 Endocardial [facility] Implantable Lead Special Function Lead length: 45 cm [facility] Implantable Lead Location Right At[facility] [place] Setting Mode (NBG Code) DDDR [facility] [place] Setting Lower Rate Limit 60 {beats}/ min [facility] [place] Setting Maximum Tracking Rate 120 {beats}/ min [facility] [place] Setting Maximum Sensor Rate 120 {beats}/ min [facility] [place] Setting NAYELY Delay Low 140 ms [facility] [place] Setting PAV Delay Low 170 ms [facility] [place] Setting PAV Delay High 140 ms [facility] [place] Setting NAYELY Delay High 110 ms [facility] [place] Setting AT Mode Switch Rate 150 {beats}/ min [facility] [place] Setting AT Mode Switch Mode DDIR [facility] Lead Channel Setting Sensing Polarity Bipolar [facility] Lead Channel Setting Sensing Anode Location Right Atrium [facility] Lead Channel Setting Sensing Anode Terminal Ring [facility] Lead Channel Setting Sensing Cathode Location Right Atrium [facility] Lead Channel Setting Sensing Cathode Terminal Tip [facility] Lead Channel Setting Sensing Sensitivity 0.3 mV [facility] Lead Channel Setting Sensing Adaptation Mode Fixed [facility] Lead Channel Setting Sensing Polarity Bipolar [facility] Lead Channel Setting Sensing Anode Location Right Ventricle [facility] Lead Channel Setting Sensing Anode Terminal Ring [facility] Lead Channel Setting Sensing Cathode Location Right Ventricle [facility] Lead Channel Setting Sensing Cathode Terminal Tip [facility] Lead Channel Setting Sensing Sensitivity 0.9 mV [facility] Lead Channel Setting Sensing Adaptation Mode Fixed [facility] Lead Channel Setting Pacing Polarity Bipolar [facility] Lead Channel Setting Pacing Anode Location Right Atrium [facility] Lead Channel Setting Pacing Anode Terminal Ring [facility] Lead Channel Setting Sensing Cathode Location Right Atrium [facility] Lead Channel Setting Sensing Cathode Terminal Tip [facility] Lead Channel Setting Pacing Pulse Width 0.4 ms [facility] Lead Channel Setting Pacing Amplitude 1.5 V [facility] Lead Channel Setting Pacing Capture Mode Adaptive [facility] Lead Channel Setting Pacing Polarity Bipolar [facility] Lead Channel Setting Pacing Anode Location Right Ventricle [facility] Lead Channel Setting Pacing Anode Terminal Ring [facility] Lead Channel Setting Sensing Cathode Location Right Ventricle [facility] Lead Channel Setting Sensing Cathode Terminal Tip [facility] Lead Channel Setting Pacing Pulse Width 0.4 ms [facility] Lead Channel Setting Pacing Amplitude 2 V [facility] Lead Channel Setting Pacing Capture Mode Adaptive [facility] Zone Setting Type Category VF [facility] Zone Setting Type Category VT [facility] Zone Setting Type Category VT [facility] Zone Setting Type Category VT [facility] Zone Setting Detection Interval 350 ms [facility] Zone Setting Type Category ATRIAL_FIBRILLATI ON [facility] Zone Setting Type Category AT/AF [facility] Zone Setting Detection Interval 400 ms [facility] Lead Channel Impedance Value 437 ohm [facility] Lead Channel Impedance Value 361 ohm [facility] Lead Channel Sensing Intrinsic Amplitude 3.75 mV [facility] Lead Channel Impedance Value 437 ohm [facility] Lead Channel Impedance Value 285 ohm [facility] Lead Channel Sensing Intrinsic Amplitude 16.125 mV [facility] Lead Channel Pacing Threshold Amplitude 0.625 V [facility] Lead Channel Pacing Threshold Pulse Width 0.4 ms [facility] Battery Date Time of Measurements [facility] Battery MIDDLEWARE DEVELOPER Trigger 2.625 [facility] Battery Remaining [...] [facility] Atrial Tachy Statistic AT/AF Durand Percent 100 % [facility] Episode [...] SYSTEM Episode Statistic Recent Date Time End [id number] [facility] Episode Statistic Recent Date Time Start [facility] Episode Statistic Recent Date Time End [id number] [facility] Episode Statistic Recent Date Time Start [facility] Episode Statistic Recent Date Time End [id number] [facility] Episode Statistic Recent Date Time Start F[facility] Episode Statistic Recent Date Time End [id number] [facility] Episode Statistic Total Count [...] SYSTEM Episode Statistic Total Date Time Start [id number] [facility] Episode Statistic Total Date Time End [id number] [facility] Episode Statistic Total Date Time Start F[facility] Episode Statistic Total Date Time End [facility] Episode Statistic Total Date Time Start [id number] [facility] Episode Statistic Total Date Time End [id number] [facility] Episode Statistic Total Date Time Start [facility] Episode Statistic Total Date Time End [id number] [facility] Episode Statistic Total Date Time Start [id number] [facility] Episode Statistic Total Date Time End [id number] [facility] Episode Identifier 355 [facility] Episode Type Category Monitor [facility] Episode Date Time [id number] [facility] Episode Identifier 354 [facility] Episode Type Category Monitor [facility] Episode Date Time [id number] [facility] Episode Duration 2,114 s [facility] Episode Identifier 353 [facility] Episode Type Category Monitor [facility] Episode Date Time [id number] [facility] Episode Duration 88,441 s [facility] Episode Identifier 352 [facility] Episode Type Category Monitor [facility] Episode Date Time [id number] [facility] Episode Duration 9,644 s [facility] Episode Identifier 351 [facility] Episode Type Category Monitor [facility] Episode Date Time [id number] [facility] Episode Duration 429,641 s [facility] Episode Identifier 350 [facility] Episode Type Category Monitor [facility] Episode Date Time [id number] [facility] Episode Duration 1,166 s [facility] Episode Identifier 349 [facility] Episode Type Category Monitor [facility] Episode Date Time [id number] [facility] Episode Duration 151,860 s [facility] Episode Identifier 348 [facility] Episode Type Category Monitor [facility] Episode Date Time [id number] [facility] Episode Duration 6,946 s [facility] Episode Identifier 347 [facility] Episode Type Category Monitor [facility] Episode Date Time [id number] [facility] Episode Duration 81,644 s [facility] Episode Identifier 346 [facility] Episode Type Category Monitor [facility] Episode Date Time [id number] [facility] Episode Duration 93,997 s [facility] Episode Identifier 345 [facility] Episode Type Category Monitor [facility] Episode Date Time [id number] [facility] Episode Duration 93,828 s [facility] Episode Identifier 344 [facility] Episode Type Category Monitor [facility] Episode Date Time [id number] [facility] Episode Duration 400 s [facility] Episode Identifier 343 [facility] Episode Type Category Monitor [facility] Episode Date Time [id number] [facility] Episode Duration 1,118,301 s [facility] Episode Identifier 342 [facility] Episode Type Category Monitor [facility] Episode Date Time [id number] [facility] Episode Duration 3,324 s [facility] Episode Identifier 341 [facility] Episode Type Category Monitor [facility] Episode Date Time [id number] [facility] Episode Duration 83,516 s [facility] Episode Identifier 340 [facility] Episode Type Category Monitor [facility] Episode Date Time [id number] [facility] Episode Duration 14,678 s [facility] Episode Identifier 339 [facility] Episode Type Category Monitor [facility] Episode Date Time [id number] [facility] Episode Duration 496,921 s [facility] Episode Identifier 338 [facility] Episode Type Category Monitor [facility] Episode Date Time [id number] [facility] Episode Duration 83,144 s [facility] Episode Identifier 337 [facility] Episode Type Category Monitor [facility] Episode Date Time [id number] [facility] Episode Duration 104,621 s [facility] Episode Identifier 336 [facility] Episode Type Category Monitor [facility] Episode Date Time [id number] [facility] Episode Duration 1,948,583 s [facility] Episode Identifier 335 [facility] Episode Type Category Monitor [facility] Episode Date Time [id number] [facility] Episode Duration 116,384 s [facility] Episode Identifier 334 [facility] Episode Type Category Monitor [facility] Episode Date Time [id number] [facility] Episode Duration 129 s [facility] Episode Identifier 333 [facility] Episode Type Category Monitor [facility] Episode Date Time [id number] [facility] Episode Duration 148,973 s [facility] Episode Identifier 332 [facility] Episode Type Category Monitor [facility] Episode Date Time [id number] [facility] Episode Duration 107,226 s [facility] Episode Identifier 331 [facility] Episode Type Category Monitor [facility] Episode Date Time [id number] [facility] Episode Duration 63,198 s [facility] Episode Identifier 330 [facility] Episode Type Category Monitor [facility] Episode Date Time [id number] [facility] Episode Duration 812 s [facility] Episode Identifier 329 [facility] Episode Type Category Monitor [facility] Episode Date Time [id number] [facility] Episode Duration 6,367 s [facility] Episode Identifier 328 [facility] Episode Type Category Monitor [facility] Episode Date Time [id number] [facility] Episode Duration 19,447 s [facility] Episode Identifier 327 [facility] Episode Type Category Monitor [facility] Episode Date Time [id number] [facility] Episode Duration 74,124 s [facility] Episode Identifier 326 [facility] Episode Type Category Monitor [facility] Episode Date Time [id number] [facility] Episode Duration 173,893 s [facility] Episode Identifier 325 [facility] Episode Type Category Monitor [facility] Episode Date Time [id number] [facility] Episode Duration 1,543 s [facility] Episode Identifier 324 [facility] Episode Type Category Monitor [facility] Episode Date Time [id number] [facility] Episode Duration 78,618 s [facility] Episode Identifier 323 [facility] Episode Type Category Monitor [facility] Episode Date Time [id number] [facility] Episode Duration 257,526 s [facility] Episode Identifier 322 [facility] Episode Type Category Monitor [facility] Episode Date Time [id number] [facility] Episode Duration 104,234 s [facility] Episode Identifier 321 [facility] Episode Type Category Monitor [facility] Episode Date Time [id number] [facility] Episode Duration 340,618 s [facility] Episode Identifier 320 [facility] Episode Type Category Monitor [facility] Episode Date Time [id number] [facility] Episode Duration 153,607 s [facility] Episode Identifier 319 [facility] Episode Type Category Monitor [facility] Episode Date Time [id number] [facility] Episode Duration 101,594 s [facility] Episode Identifier 318 [facility] Episode Type Category Monitor [facility] Episode Date Time [id number] [facility] Episode Duration 80,032 s [facility] Episode Identifier 317 [facility] Episode Type Category Monitor [facility] Episode Date Time [id number] [facility] Episode Duration 38 s [facility] Episode Identifier 316 [facility] Episode Type Category Monitor [facility] Episode [facility] Time [id number] [facility] Episode Duration 93 s [facility] Episode Identifier 315 [facility] Episode Type Category Monitor F[facility] Episode Date Time [id number] [facility] Episode Duration 203 s [facility] Episode Identifier 314 [facility] Episode Type Category Monitor F[facility] Episode Date Time [id number] [facility] Episode Duration 381 s [facility] Episode Identifier 313 [facility] Episode Type Category Monitor [facility] Episode Date Time [id number] [facility] Episode Duration 28 s [facility] Episode Identifier 312 [facility] Episode Type Category Monitor F[facility] Episode Date Time [id number] [facility] Episode Duration 1,270 s [facility] Episode Identifier 311 [facility] Episode Type Category Monitor [facility] Episode Date Time [id number] [facility] Episode Duration 103 s [facility] Episode Identifier 310 [facility] Episode Type Category Monitor [facility] Episode Date Time [id number] [facility] Episode Duration 31 s [facility] Episode Identifier 309 [facility] Episode Type Category Monitor F[facility] Episode Date Time [id number] [facility] Episode Duration 48 s [facility] Episode Identifier 308 [facility] Episode Type Category Monitor [facility] Episode Date Time [id number] [facility] Episode Duration 50 s [facility] Episode Identifier 307 [facility] Episode Type Category Monitor [facility] Episode Date Time [id number] [facility] Episode Duration 13,153 s [facility] Episode Identifier 306 [facility] Episode Type Category Monitor [facility] Episode Date Time [id number] [facility] Episode Duration 85,393 s [facility] Episode Identifier 305 [facility] Episode Type Category Monitor [facility] Episode Date Time [id number] [facility] Episode Duration 73,689 s [...] follow-up will be in 3 months via App [employer] Co. remote transmission DEVICE RN: Pauly Barraza RN Provider statement: This patient underwent device interrogation. I agree that the device interrogation was medically indicated to provide appropriate care and continue routine device interrogations as indicated. Trenton Rogers M.D., M.P.H. CV IMPLANTABLE CARDI AC DEVICE Final Result documented in this encounter Visit Diagnoses Diagnosis Encounter For Checking And Testing Of Cardiac Pacemaker Pulse Generator Battery documented in this encounter Care Teams Valve Mechanic Relationship Specialty Start Date End Date Elsewhere, Pcp PCP - General Internal Medicine 10/26/22 documented as of this encounter
--- OUTSIDE RECORDS SUMMARY | 2024-07-14 14:28 | XMS_ITS | Referral Summary ---
Author Organization [facility] Address [address] [place] [address] Care Team Providers Care Installment Agent Name Role Phone Elsewhere, Pcp Primary Care Provider Unavailabl e Source Comments Patient records contain information from all sites at [facility]. For routine questions regarding patient records, call [phone] during business hours, M-F 8:00 AM - 5:00 PM Central Time. Record requests for emergency care only can be directed to [phone] at any time[address] Encounters Date Type Department Care Team Description 04/29/2024 4:00 AM CDT - 04/29/2024 11:59 PM CDT Hospital Encounter Department of Cardiovascular Diseases in [place], [place] [address] [place] [address] Trenton Rogers M.D., M.P.H. Encounter For Checking And Testing Of Cardiac Pacemaker Pulse Generator Battery Discharge Disposition: Home or Self Care from Last 3 Months Allergies No known active allergies Medications metoprolol [...] (10/16/2022): Added automatically from request for surgery [id number] Hyperlipidemia 06/24/2010 Hypertension 06/22/2010 Atrial Fibrillation Unspecified [...] How often do you attend chur or temple services? More than 4 times per year 01/19/2023 Do you belong to any clubs o r organizations such as holiness groups, unions, fraternal or athletic groups, or [...] and heating? Not hard at all 01/19/2023 [facility] - Occupational Stress [...] place to sleep or slept in a long-term (including now)? 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 Cardiac Lead Heart Medtronic / [id number] / Description:Device Manufactu rer - Medtronic [employer] Body Location - ?. Right Ventricle. Device Status Text - CARD [id number]. Lead 4076-45 Capsurefix Novus - Coleman [id number] Implanted:Qty: 1 on 08/04/2010 Cardiac Lead Heart Medtronic / [id number] / Description:Device Manufactu rer - Medtronic [employer] Body Location - ?. Right Atrial. Device Status Text - CARD LEAD-300306. Valve Trifecta 23mm Tis - Coleman [id number] Implanted:Qty: 1 on 07/20/[address] [facility] Description:Device Manufactu rer - [facility] Body Location - Other. Aortic. Device Status Text - [id number]-[id number]. Envelope Md Olmos - [id number] Implanted:Qty: 1 on 10/26/2022 by Damian Pugh M.D., Ph.D. at [facility] Mesh or Patch Medtronic 07/19/2023 [id number] / / [id number] Conversions - Default Historical Implant Device Implanted:06/25 (Quantity not on file) Ocular Lens Other/Legacy - See Implant Description Description:Body Location - mariela eyes. Device Status Text - OculrLens. Ppm Angelica Dr Armenta [id number] - [id number] Implanted:Qty: 1 on 10/26/2022 by Damian Pugh M.D., Ph.D. at [facility] Pacemaker Medtronic 03/21/2024 [id number] / [id number] / Explanted Type Area Charge Operator Device Identifier Shelf Expiration Date Model / Serial / Lot Pacer [id number] Sensia Dr Armenta Coleman [id number] Implanted:Qty: 1 on 08/04/2010 Explanted:Qty: 1 on 10/26/2022 by Damian Pugh M.D., Ph.D. at [facility] Pacemaker Right: Other/Legacy - See Implant Description Medtronic / [id number] / Description:Device Manufactu rer - Medtronic [employer] Body Location - Right. Device Status Text - [id number]. Procedures Procedure Name Priority Date/Time Associated Diagnosis [...] 10:46 AM CDT) Date Time Interrogation Session [id number] [facility] Implantable Pulse Generator Charge Operator Medtronic [facility] Implantable Pulse Generator Model [id number] Ana M XT MRI [facility] Implantable Pulse Generator Serial Number [id number] [facility] Type Interrogation Session Remote [facility] Clinic Name [facility] [place] [facility] Implantable Pulse Generator Type Pacemaker [facility] Implantable Pulse Generator Implant Date 20221026 [facility] Implantable Lead Charge Operator Medtronic [facility] Implantable Lead Model 4076 CapsureFix Novus MRI SureScan [facility] Implantable Lead Serial Number [id number] [facility] Implantable Lead Implant Date [id number] [facility] Implantable Lead Polarity Type Bipolar Lead [facility] Implantable Lead Location Detail 1 Endocardial [facility] Implantable Lead Special Function Lead length: 52 cm [facility] Implantable Lead Location Right Ventricle [facility] Implantable Lead Charge Operator Medtronic [facility] Implantable Lead Model 4076 CapsureFix Novus MRI SureScan [facility] Implantable Lead Serial Number [id number] [facility] Implantable [...] Lead Channel Sensing Intrinsic Amplitude 3.75 mV [facility] Lead Channel Impedance Value 437 ohm [facility] Lead Channel Impedance Value 285 ohm [facility] Lead Channel Sensing Intrinsic Amplitude 16.125 mV [facility] Lead Channel Pacing Threshold Amplitude 0.625 V [facility] Lead Channel Pacing Threshold Pulse Width 0.4 ms [facility] Battery Date Time of Measurements [facility] Battery NEONATAL PEDIATRIC NURSE Trigger 2.625 [facility] Battery Remaining [...] [facility] Atrial Tachy Statistic AT/AF Whitney Percent 100 % [facility] Episode [...] SYSTEM Episode Statistic Recent Date Time End [id number] [facility] Episode Statistic Recent Date Time Start [facility] Episode Statistic Recent Date Time End [id number] [facility] Episode Statistic Recent Date Time Start [facility] Episode Statistic Recent Date Time End [id number] [facility] Episode Statistic Recent Date Time Start [facility] Episode Statistic Recent Date Time End [id number] [facility] Episode Statistic Recent Date Time Start [facility] Episode Statistic Recent Date Time End [facility] Episode Statistic Total Count [...] SYSTEM Episode Statistic Total Date Time Start [id number] [facility] Episode Statistic Total Date Time End [id number] [facility] Episode Statistic Total Date Time Start [facility] Episode Statistic Total Date Time End [id number] [facility] Episode Statistic Total Date Time Start F[facility] Episode Statistic Total Date Time End [id number] [facility] Episode Statistic Total Date Time Start [facility] Episode Statistic Total Date Time End [id number] [facility] Episode Statistic Total Date Time Start F[facility] Episode Statistic Total Date Time End [id number] [facility] Episode Identifier 355 [facility] Episode Type Category Monitor [facility] Episode Date Time [id number] [facility] Episode Identifier 354 [facility] Episode Type Category Monitor [facility] Episode Date Time [id number] [facility] Episode Duration 2,114 s [facility] Episode Identifier 353 [facility] Episode Type Category Monitor [facility] Episode Date Time [id number] [facility] Episode Duration 88,441 s [facility] Episode Identifier 352 [facility] Episode Type Category Monitor [facility] Episode Date Time [id number] [facility] Episode Duration 9,644 s [facility] Episode Identifier 351 [facility] Episode Type Category Monitor [facility] Episode Date Time [id number] [facility] Episode Duration 429,641 s [facility] Episode Identifier 350 [facility] Episode Type Category Monitor [facility] Episode Date Time [id number] [facility] Episode Duration 1,166 s [facility] Episode Identifier 349 [facility] Episode Type Category Monitor [facility] Episode Date Time [id number] [facility] Episode Duration 151,860 s [facility] Episode Identifier 348 [facility] Episode Type Category Monitor [facility] Episode Date Time [id number] [facility] Episode Duration 6,946 s [facility] Episode Identifier 347 [facility] Episode Type Category Monitor [facility] Episode Date Time [id number] [facility] Episode Duration 81,644 s [facility] Episode Identifier 346 [facility] Episode Type Category Monitor [facility] Episode Date Time [id number] [facility] Episode Duration 93,997 s [facility] Episode Identifier 345 [facility] Episode Type Category Monitor [facility] Episode Date Time [id number] [facility] Episode Duration 93,828 s [facility] Episode Identifier 344 [facility] Episode Type Category Monitor [facility] Episode Date Time [id number] [facility] Episode Duration 400 s [facility] Episode Identifier 343 [facility] Episode Type Category Monitor [facility] Episode Date Time [id number] [facility] Episode Duration 1,118,301 s [facility] Episode Identifier 342 [facility] Episode Type Category Monitor [facility] Episode Date Time [id number] [facility] Episode Duration 3,324 s [facility] Episode Identifier 341 [facility] Episode Type Category Monitor [facility] Episode Date Time [id number] [facility] Episode Duration 83,516 s [facility] Episode Identifier 340 [facility] Episode Type Category Monitor [facility] Episode Date Time [id number] [facility] Episode Duration 14,678 s [facility] Episode Identifier 339 [facility] Episode Type Category Monitor [facility] Episode Date Time [id number] [facility] Episode Duration 496,921 s [facility] Episode Identifier 338 [facility] Episode Type Category Monitor [facility] Episode Date Time [id number] [facility] Episode Duration 83,144 s [facility] Episode Identifier 337 [facility] Episode Type Category Monitor [facility] Episode Date Time [id number] [facility] Episode Duration 104,621 s [facility] Episode Identifier 336 [facility] Episode Type Category Monitor [facility] Episode Date Time [id number] [facility] Episode Duration 1,948,583 s [facility] Episode Identifier 335 [facility] Episode Type Category Monitor [facility] Episode Date Time [id number] [facility] Episode Duration 116,384 s [facility] Episode Identifier 334 [facility] Episode Type Category Monitor [facility] Episode Date Time [id number] [facility] Episode Duration 129 s [facility] Episode Identifier 333 [facility] Episode Type Category Monitor [facility] Episode Date Time [id number] [facility] Episode Duration 148,973 s [facility] Episode Identifier 332 [facility] Episode Type Category Monitor [facility] Episode Date Time [id number] [facility] Episode Duration 107,226 s [facility] Episode Identifier 331 [facility] Episode Type Category Monitor [facility] Episode Date Time [id number] [facility] Episode Duration 63,198 s [facility] Episode Identifier 330 [facility] Episode Type Category Monitor [facility] Episode Date Time [id number] [facility] Episode Duration 812 s [facility] Episode Identifier 329 [facility] Episode Type Category Monitor [facility] Episode Date Time [id number] [facility] Episode Duration 6,367 s [facility] Episode Identifier 328 [facility] Episode Type Category Monitor [facility] Episode Date Time [id number] [facility] Episode Duration 19,447 s [facility] Episode Identifier 327 [facility] Episode Type Category Monitor [facility] Episode Date Time [id number] [facility] Episode Duration 74,124 s [facility] Episode Identifier 326 [facility] Episode Type Category Monitor [facility] Episode Date Time [id number] [facility] Episode Duration 173,893 s [facility] Episode Identifier 325 [facility] Episode Type Category Monitor [facility] Episode Date Time [id number] [facility] Episode Duration 1,543 s [facility] Episode Identifier 324 [facility] Episode Type Category Monitor [facility] Episode Date Time [id number] [facility] Episode Duration 78,618 s [facility] Episode Identifier 323 [facility] Episode Type Category Monitor [facility] Episode Date Time [id number] [facility] Episode Duration 257,526 s [facility] Episode Identifier 322 [facility] Episode Type Category Monitor [facility] Episode Date Time [id number] [facility] Episode Duration 104,234 s [facility] Episode Identifier 321 [facility] Episode Type Category Monitor [facility] Episode Date Time [id number] [facility] Episode Duration 340,618 s [facility] Episode Identifier 320 [facility] Episode Type Category Monitor [facility] Episode Date Time [id number] [facility] Episode Duration 153,607 s [facility] Episode Identifier 319 [facility] Episode Type Category Monitor [facility] Episode Date Time [id number] [facility] Episode Duration 101,594 s [facility] Episode Identifier 318 [facility] Episode Type Category Monitor [facility] Episode Date Time [id number] [facility] Episode Duration 80,032 s [facility] Episode Identifier 317 [facility] Episode Type Category Monitor [facility] Episode Date Time [id number] [facility] Episode Duration 38 s [facility] Episode Identifier 316 [facility] Episode Type Category Monitor F[facility] Episode Date Time [id number] [facility] Episode Duration 93 s [facility] Episode Identifier 315 [facility] Episode Type Category Monitor [facility] Episode Date Time [id number] [facility] Episode Duration 203 s [facility] Episode Identifier 314 [facility] Episode Type Category Monitor F[facility] Episode Date Time [id number] [facility] Episode Duration 381 s [facility] Episode Identifier 313 [facility] Episode Type Category Monitor [facility] Episode Date Time [id number] [facility] Episode Duration 28 s [facility] Episode Identifier 312 [facility] Episode Type Category Monitor [facility] Episode Date Time [id number] [facility] Episode Duration 1,270 s [facility] Episode Identifier 311 [facility] Episode Type Category Monitor [facility] Episode Date Time [id number] [facility] Episode Duration 103 s [facility] Episode Identifier 310 [facility] Episode Type Category Monitor [facility] Episode Date Time [id number] [facility] Episode Duration 31 s [facility] Episode Identifier 309 [facility] Episode Type Category Monitor F[facility] Episode Date Time [id number] [facility] Episode Duration 48 s [facility] Episode Identifier 308 [facility] Episode Type Category Monitor [facility] Episode Date Time [id number] [facility] Episode Duration 50 s [facility] Episode Identifier 307 [facility] Episode Type Category Monitor [facility] Episode Date Time [id number] [facility] Episode Duration 13,153 s [facility] Episode Identifier 306 [facility] Episode Type Category Monitor [facility] Episode Date Time [id number] [facility] Episode Duration 85,393 s [facility] Episode Identifier 305 [facility] Episode Type Category Monitor F[facility] Episode Date Time [id number] [facility] Episode Duration 73,689 s FOU [...] follow-up will be in 3 months via [employer] remote transmission DEVICE RN: Pauly Barraza RN [...] M.S. LAB BLOOD ADD-ON Fi nal Result [facility] [address] [place] [address], [facility] DTL [facility] [address] [place] [address] * Potassium (12/21/2022 8:23 AM CDT) Potassium, S 4.1 3.6 - 5.2 mmol/L 12/21/2022 9:38 AM CDT DTL Blood (Blood, Venous) 12/21/2022 8:23 AM CDT 12/21/2022 9:05 AM CDT Esther Berry P.A.-C., M.S. LAB BLOOD ADD-ON Fi nal Result Performing Organization Address City/[facility]/ZIP Co de Phone Number [facility] [address] [place] [address], [facility] [address] [place] [address] * Creatinine with Estimated GFR (12/21/2022 8:23 AM CDT) Creatinine 0.79 0.59 - 1.04 mg/dL 12/21/2022 9:38 AM CDT DTL Estimated GFR (eGFR) 72 >=60 mL/min/BSA 12/21/2022 9:38 AM CDT DTL Comment: Estimated GFR calculated using the 2020 CKD_EPI creatinine equation. Blood (Blood, Venous) 12/21/2022 8:23 AM CDT 12/21/2022 9:05 AM CDT Esther Berry P.A.-C., M.S. LAB BLOOD ADD-ON Fi nal Result [facility] [address] [place] [address], [facility] [address] [place] [address] from Last 3 Months or Most Recently Relevant to Health Maintenance Insurance [facility] [place] [address] Care Teams Installment Agent Relationship Specialty Start Date End Date Elsewhere, Pcp PCP - General Internal Medicine 10/26/22
--- OUTSIDE RECORDS SUMMARY | 2024-07-14 14:28 | XMS_ITS | Data Portability ---
Author Organization [place] - [facility] luigi, [facility] Address [address] [place] [address] Care Team Providers Care Micro Paleontologist Name Role Phone SANTIAGO ZARATE Primary Care Provider Assessment No assessment recorded. Plan of Treatment Reminders Order Date Submit Date Provider Last Modified By Organization Details Last Modified Time Details Appointments None recorded. Lab urinalysis , dipstick 2019 020 [email or web address] [facility], [facility], [address], [place], [address], 0 12:34:16 Referral None recorded. Procedures bladder scan (PROC) 2019 020 [email or web address] [facility], [address], [address], [place], [address], 0 12:34:16 Surgeries None recorded. Imaging None recorded. Medication Orders None recorded. Patient TargetsNo targets recorded. Patient InstructionsNo instructions recorded. Reason for Referral None Reported. Results Created Date Observation Date Name Description Value Unit Range Abnormal Flag Note LastModifiedBy Organization Detail LastModifiedTime 07/05/2020 bladd er scan (PROC ) Volume (in mL) 0 mLs Not Available [facility] [address], [place], [address], 07/05/2020 12:28:52 07/05/2020 urina lysis , dipst ick pH-Status 6.0 Not Available [facility] [address], [place], [address], 07/05/2020 12:28:45 07/05/2020 urina lysis , dipst ick Blood-Status Trace Not Available [facility] [address], [place], [address], 07/05/2020 12:28:45 07/05/20 20 imagi ng/di agnos tic resul t No observ ation record ed. [email or web address] Not Available 2019 17:16:49 Result Notes None recorded. Procedures Surgical History Date Name Laterality Status Provider Name and Address Organization Details Recorded Time 07/05/20 20 Cystoscopy- female completed Duglas Joyner MD [address] [place] [address],[address], [place], [address], [facility] 07/05/2020 12:56:59 Cardiac Surgery completed Yadi Farrell [facility] 07/05/2020 12:17:20 Cataract Surgery completed Yadi Farrell [facility] 07/05/2020 12:17:25 Cholecystectomy completed Yadi Farrell [facility] 07/05/2020 12:17:29 Imaging Results Imaging Date Name Status LastModified by Organiz ation Details LastModified Time 07/05/2020 imaging/diag nostic [facility] Information not available 07/05/2020 17:16:49 Procedure Notes None recorded. Medical Equipment None Reported. Allergies No known drug allergies Medications Name Sig Start Date Stop Date Status Note LastModified by Organization Details LastModified Time warfarin active Not Available Not Avai lable Not Available hydrochlorothiazide active Not Availab le Not Available Not Available simvastatin active Not Available Not A vailable Not Available lisinopril active Not Available Not Av ailable Not Available metoprolol succinate active Not Available Not Available No t Available Vitals Date Recorded Body height Body mass index (BMI) Body weight Heart rate Provider Name and Address Organization Details Last Updated DateTime 07/05/2020 168.91 cm 28.6 kg/m2 02466.63 g 68 /min Yadi Farrell [facility] 07/05/2020 12:35:02 Social History None recorded. Functional Status None recorded. Mental Status None recorded. Family History Relationship Description Onset Age of this Age Resolved Age Notes LastModified by Organization Details LastModified Time Sister Family history of breast cancer [email or web address] Not available 2019 12:17:46 Medical History Condition Response Diabetes N Sexually Transmitted Infection N Other N Bleeding Disorder N High Blood Pressure N Kidney Stones N Cancer Y Lung Disease N Depression N High Cholesterol N GERD/Acid Reflux N Heart Disease N Gynecological History Statement/Question Response Sexually Active? N Obstetrics History GPAL:G 4 P 0 0 1 0 Type Value Spontaneous 1 Total 4 Immunizations Vaccine Type Date Status Provider Name and Address Organization Details Recorded Time Pneumococcal conjugate PCV 13 08/03/2016 completed Taylor paula [facility] 09/21/2020 16:20:28 Past Encounters Encounter ID Performer Location Encounter Start Date Encounter Closed Date Diagnosis/Indication Diagnosis SNOMED-CT Code Diagnosis ICD10 Code [id number] Duglas Joyner MD [facility] [address] [place] [address] 07/05/2020 12:13:14 07/22/2020 16:40:50 Dysuria [id number] R30.9 Health Concerns Section Related Observation LastModified by Organization Detai ls LastModified Time None Recorded Concern Status LastModified by Organization Details LastModified Time None Recorded Advance Directives Directive None Recorded Payers Encounter Date Sequence Insurance Name Policy Number Policy Galvin Covered Member ID Galvin Member ID Guarantor Name 07/05/2020 1 [employer]-ID: [facility] [id number] Clint Box [id number] Clint Box Notes Date Note Type Note Provider Name and Address Organization Details Recorded Time 07/05/2020 text/html HPI Notes: Clint is an 84 year old female patient here today for burning with urination as well as a 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 This was diagnosed by her primary care doctor with [facility] but I do not have any records available except the recent urine culture which was negative on 06/16/2020. She reports a prior positive culture that was treated with antibiotics and she did have some symptomatic improvement of dysuria and burning pain. More recently she had a physical exam that reportedly showed a urethral caruncle. She has been using topical estrogen cream daily for the past 2 weeks and also notes some improvement in what she describes as external vaginal burning pain. She denies any difficulty voiding. Urinalysis today shows trace blood, otherwise negative. Duglas Joyner MD [address] [place] [address],[address], [place], [address], [facility] 07/05/2020 12:57:36 OBGyn Episode No OBEpisode recorded.
--- OUTSIDE RECORDS SUMMARY | 2024-07-14 14:28 | XMS_ITS ---
Author Organization [facility] Address [address] [place] [address] Care Team Providers Care Appraiser Irrigation Tax Name Role Phone Unavailable Unavailable Unavailable Surgery Details Not on file Complications Check Surgery Details section. Procedure Estimated Blood Loss Check Surgery Details section. Procedure Findings Check Surgery Details section. Procedure Specimens Taken Check Surgery Details section.
--- OUTSIDE RECORDS SUMMARY | 2024-07-14 14:28 | XMS_ITS | Clinical Summary ---
Author Organization [facility] Address [place], [place] [address] Care Team Providers Care Radiation Officer Name Role Phone Lizzy Diaz MD Primary [...] 10/15/2007 FAMILY HX OF ISCHEMIC HEART DISEASE-mother [place] [...] PM CDT Pulse 64 10/15/2007 1:34 PM CATALOG SPECIALIST Temperature 36.6 ??C (97.9 ??F) 03/08/2007 1:45 PM CD T Respiratory Rate - - Oxygen Saturation - - Inhaled Oxygen Concentration - - Weight 80.6 kg (177 lb 9.6 oz) 03/13/2008 1:08 P M CDT Height 170.2 cm (5' 7) 10/15/2007 1:34 PM CATALOG SPECIALIST Body Mass Index 27.82 10/15/2007 1:34 PM CATALOG SPECIALIST Plan of Treatment Health Maintenance Due Date [...] available in the patient? s chart on [facility]. A new tool has been developed which [...] two scanners are made by the same maitre d'. Elizabeth Henson MD. Breast Radiologist [facility] Narrative 06/22/2008 9:58 AM CDT DXA BONE MINERAL DENSITY ??06/18/08 CLINICAL HISTORY: ??This is a 72-year-old female patient. RISK FACTORS FOR LOW BONE MINERAL DENSITY: ??The patient has estrogen deficiency. ??The patient has a history of breast cancer. TECHNIQUE: ??The patient was scanned on a [employer] scanner, fast array scan mode. ??The study [...] TECHNIQUE: The patient was scanned on a [employer] scanner, fastarray scan mode. The study was [...] available in the patient? s chart on End[facility]. A new tool has been developed which [...] the two scanners are madeby the same maitre d'. Elizabeth Henson MD. Breast Radiologist [facility] Brett Lane MD DEXA from Last 3 Months or Most Recently Relevant to Health Maintenance Advance Directives * No Code Status (Latest Code Status on File) Date Activated Date Inactivated Comments 08/07/2004 10:50 PM 08/07/2004 11:50 PM Care Teams Radiation Officer Relationship Specialty Start Date End Date Lizzy Diaz MD [facility] - General 07/10/10
--- NOTE | 2024-07-14 14:40 | CRLHL7_ITS ---
For Patients: As a result of the Century Cures Act, medical imaging exams and procedure reports are released immediately into your electronic medical record. You may view this report before your referring provider. If you have questions, please contact your health care provider. BILATERAL SCREENING MAMMOGRAM WITH COMPUTER-AIDED DETECTION AND TOMOSYNTHESIS TECHNIQUE: CC and MLO views were obtained. These mammographic images have been obtained using full-field digital technique. These mammographic images were interpreted with the benefit of computer-aided detection. Breast Tomosynthesis was used in this interpretation. COMPARISON FILM: 07/11/23, 06/21/22, 05/24/21. FINDINGS: There are scattered areas of fibroglandular density. IMPRESSION: There is no radiographic evidence for malignancy. ASSESSMENT: BI-RADS Category 2: Benign RECOMMENDATION: Routine screening mammogram in 1 year. A lay language report of this examination will be provided to the patient. Morales Spence M.D. Diagnostic Radiologist [email or web address] SP/Dictated by: Morales Spence MD @ 07/17/2024 11:40:00 AM (Electronically Signed)
== END 2024-07-14 14:19 | disposition home or self-care (01) ==
LOC: MAMMO 14:18
PROVIDERS: PCP Emergency Medicine; Visit Provider Emergency Medicine
DX: Z12.31 Encounter for screening mammogram for malignant neoplasm of breast (principal)
CPT/HCPCS: 77063; 77067

== ENCOUNTER 2024-08-19 14:15 | Outpatient (CLI) | payer MEDICARE, SELFPAY | END 2024-08-19 14:16 | disposition home or self-care (01) | PROVIDERS: PCP Emergency Medicine; Visit Provider Emergency Medicine | DX: I10 Essential (primary) hypertension (principal); I07.1 Rheumatic tricuspid insufficiency; R06.02 Shortness of breath; D72.819 Decreased white blood cell count, unspecified | CPT/HCPCS: 80048; 83880 ==

== ENCOUNTER 2025-01-07 14:21 | Outpatient (CLI) | payer MEDICARE, SELFPAY | END 2025-01-07 14:22 | disposition home or self-care (01) | LOC: LKVREF 14:22 | PROVIDERS: PCP Emergency Medicine; Visit Provider Emergency Medicine | DX: N39.0 Urinary tract infection, site not specified (principal); R31.29 Other microscopic hematuria | CPT/HCPCS: 87086 ==

== ENCOUNTER 2025-02-06 11:35 | Outpatient (CLI) | payer MEDICARE, SELFPAY | END 2025-02-06 11:36 | disposition home or self-care (01) | LOC: NFLDREF 02-13 00:18 | PROVIDERS: PCP Emergency Medicine; Referring Provider Emergency Medicine; Visit Provider Emergency Medicine | DX: Z79.01 Long term (current) use of anticoagulants (principal); Z95.2 Presence of prosthetic heart valve | CPT/HCPCS: 85610 ==